=== PATIENT | male | born 1950 | race Caucasian/White ===

== ENCOUNTER → 2021-07-18 11:40 | Outpatient (CLI) | payer BC, SELFPAY ==
--- NOTE | ~2021-07-18 | XR_ITS ---
EXAMINATION: XR knee RT 3V DATE: 07/18/2021 12:25 INDICATION: Right knee pain. TECHNIQUE: 3 views of right knee were obtained. COMPARISON: None. FINDINGS: Bone alignment is normal. No fracture. There is an osteochondroma at the posterior medial a spect of proximal fibula. There is mild tricompartmental osteoarthritis characterized by tiny margina l osteophytes. No joint space narrowing. There is a small knee joint effusion. IMPRESSION: 1. Mild right knee osteoarthritis. 2. Small right knee joint effusion. Reviewed, dictated and finalized at location A. ROOM TECHNICIAN
--- NOTE | ~2021-07-18 | US_ITS ---
EXAMINATION: US venous doppler LE DATE: 07/18/2021 12:02 INDICATION: Right lower limb pain and swelling. TECHNIQUE: Grayscale ultrasound images without and with compression and Doppler ultrasound images of the right lower extremity veins were obtained. COMPARISON: None. FINDINGS: The visualized portions of right common femoral vein, profunda (deep) femoral vein, femoral vein, pop liteal vein, peroneal trunk, posterior tibial veins, peroneal veins, gastrocnemius vein, soleal vein and greater saphenous vein outflow are patent. IMPRESSION: 1. No deep venous thrombosis in the right lower limb. Reviewed, dictated and finalized at location B. ATOR SENIOR CLINICAL
== END ==
PROVIDERS: PCP Nurse Practitioner Adult Health; Visit Provider Family Medicine
DX: M25.561 Pain in right knee (principal); M17.11 Unilateral primary osteoarthritis, right knee; M25.461 Effusion, right knee
CPT/HCPCS: 73562; 93971

== ENCOUNTER → 2023-02-16 10:41 | Outpatient (CLI) | payer BC, SELFPAY ==
--- NOTE | ~2023-02-16 | XR_ITS ---
Right Shoulder Technique: AP and axillary views were obtained. Clinical History: Pain Findings: No fracture or dislocation is seen. Osseous alignment is anatomic. There is moderate degene rative change of glenohumeral joint, joint space narrowing and inferomedial humeral head ossify prese nt.. Soft tissues are unremarkable. Impression: Moderate glenohumeral joint osteoarthritis. Reviewed, dictated and finalized at location M. Impression: Moderate glenohumeral joint osteoarthritis.
--- NOTE | ~2023-02-16 | XR_ITS ---
Left Shoulder Technique: AP and axillary views were obtained. Clinical History: Pain Findings: No fracture or dislocation is seen. Osseous alignment is anatomic. There is moderate osteoa rthritis of the glenohumeral joint. Soft tissues are unremarkable. Impression: Moderate glenohumeral joint osteoarthritis. Reviewed, dictated and finalized at [facility]. Impression: Moderate glenohumeral joint osteoarthritis.
== END ==
PROVIDERS: PCP Orthopaedic Surgery; Visit Provider Orthopaedic Surgery
DX: M19.011 Primary osteoarthritis, right shoulder (principal); M19.012 Primary osteoarthritis, left shoulder
CPT/HCPCS: 73030

== ENCOUNTER 2023-06-18 08:28 | Outpatient (CLI) | payer BC, SELFPAY ==
--- NOTE | 2023-06-18 08:30 | ECG_ITS ---
Measurements Intervals [place] Rate: 96 P: OR: 0 QRS: 22 QRSD: 90 T: -18 QT: 346 QTc: 437 Interpretive Statements ATRIAL FIBRILLATION ABNORMAL RHYTHM ECG NO PREVIOUS ECG AVAILABLE FOR COMPARISON Electronically Signed On 06-18-2023 10:45:25 FOURTH MATE by Robbin Amador M.D.
== END 2023-06-18 08:29 | disposition home or self-care (01) ==
LOC: ANHSURGERY 08:32
PROVIDERS: PCP Family Medicine; Visit Provider Surgery
DX: K40.90 Unilateral inguinal hernia, without obstruction or gangrene, not specified as recurrent (principal); E78.5 Hyperlipidemia, unspecified; Z01.818 Encounter for other preprocedural examination
CPT/HCPCS: 36415; 86850; 86900; 86901; 93005

== ENCOUNTER 2023-06-23 01:33 | Day surgery (SDC) | payer BC, SELFPAY ==
--- NOTE | 2023-06-17 14:32 | PC.NURSE ---
Report to the Outpatient Waiting Room, entrance under the green pavilion located off [facility], at time __0600 on date _06/23/23 . Planned Procedure Time: _0730 . Time changes happen often and if your time is changed the preop area will call you the afternoon before. - You and your visitor will be asked to self-screen and do not enter if you have any COVID symptoms. - A mask is optional within the hospital at this time. Patients may have clear liquids (water, carbonated beverages, clear teas, apple juice) until 3 hours prior to surgery( 4:30 AM ) with a maximum of 20 ounces. - No food from midnight until time of surgery - Take the following medications with a SIP of water the morning of surgery: ___METOPROLOL DO NOT STOP ANY OF YOUR OTHER PRESCRIPTION MEDICATIONS PRIOR TO SURGERY ?EXCEPT THE FOLLOWING Medications to discontinue per physician ___XARELTO HOLD 3 DAYS PRE OP PER DR GIBBS 06/19/23 ALL VITAMINS 3 DAYS PRE OP . Please no make-up, nail sudanese, hairspray, perfume, deodorant, or body powder the day of surgery. No jewelry (including any body piercings) or valuables the day of surgery, leave them at home. Please take a shower or bath the night before, or the morning of, surgery with an antibacterial soap. Wear comfortable, loose fitting clothing. Children are encouraged to wear pajamas. - Jewelry must be removed prior to entering the operating room. Rings and piercings that are not removed may be cut off. - The hospital will not accept responsibility for valuables. - Please leave all valuables, including medications, at home the day of surgery. If you are going home after surgery, a licensed flatbed truck driver must drive you home. - NO public transportation without another adult if you receive anesthesia. - We recommend that an adult stay with you for 24 hours following discharge. - We also recommend that you do not drive, make important decision, drink alcoholic beverages, or take any drugs that were not prescribed by your health care provider for at least 24 hours after your discharge time. For Pediatric surgeries, we recommend two adults accompany the child home. Follow any additional instructions given to you from your surgeon. If you or anyone in your household have experienced Covid symptoms in the past week, please notify your surgeon or the nurse liaison at the phone number below for possible testing. Telephone instructions given to ___PATIENT and asked if any additional questions and then verbalized understanding. Patient advised to call surgeon office or pre surgery nurse liaison [phone] if any additional questions.
[2023-06-17 14:53] VITALS: BMI 28.3
[2023-06-23] VITALS (9 sets, daily range): BP systolic 102–136; BP diastolic 60–80; PULSE 68–98; RESP 16–22; TEMP 36.6–37.1; O2SAT 95–100
--- NOTE | 2023-06-23 06:47 | P.PNAN_ITS ---
Anes - Initial Pre Proc Eval Procedure: Operation Date: 06/23/23 07:30 Proposed Procedures p Laparoscopic Left Inguinal Hernia Repair with Mesh, Davinci Assisted - Abimael Badillo DO Date/Time: 06/23/23 06:47 Surgeon: Abimael Badillo DO Pre Op Diagnosis: left inguinal hernia Patient Data Age: 73 Gender: M Height: 1.65 m Weight: 77.2 kg Allergies Allergy/AdvReac Type Severity Reaction Status Date / Time erythromycin base Allergy Mild Nausea Verified 06/23/23 06:40 Macrolide Antibiotics Allergy Unknown NAUSEA Verified 06/21/23 13:51 Home Medications Medication Instructions Recorded Confirmed Type atorvastatin 20 mg tablet 20 mg PO DAILY 08/11/21 06/23/23 History metoprolol tartrate 50 mg tablet 50 mg PO BID 08/11/21 06/23/23 History rivaroxaban 20 mg tablet (Xarelto) 20 mg PO DAILY 08/11/21 06/23/23 History multivit,Ca,min-iron 8 mg-folic 1 tablet PO DAILY 06/17/23 06/23/23 History acid 200 mcg-lycopene 600 mcg tablet (Centrum Men) omeprazole magnesium 20 mg 20 mg PO EVERY OTHER DAY 06/17/23 06/23/23 History tablet,delayed release (Prilosec OTC) Patient hx anesthesia problems: none Family hx anesthesia problems: none Results Review: All pre-operative results and documents have been reviewed as part of the pre- operative evaluation. PENDING SALE TO [facility] Past Medical History Medical History A-fib Hip bursitis History of stress test Hyperlipidemia Nephritis Shoulder tendonitis Surgical History Surgical History History of cardioversion x4 Hx of tonsillectomy Family History Family History Father Pancreatic cancer Mother Lung cancer Social History Social History Smoking packs per day: 1 Smoking cigarettes per day: 20.0 Years smoked: 50 Smoking pack-years: 50.00 Smoking status: Former smoker Tobacco type: cigarettes Smoking end date: 07/12/10 Alcohol intake: never Lack of Transportation: No Lack of Food: Never True Current Housing: I Have Housing Concerned About Future Housing: No Difficulty Paying Gas/Electric Bills: No Difficulty Paying for Meds: No Currently Unemployed: No Education: Master's Degree or Higher Difficulty w/ Childcare or Family Care: No Living arrangements: with family Spiritual care concerns: No Anes - Eval Final PreProcedure Day of Procedure 06/23/23 06:47 Patient weight: overweight Heart: irregular rhythm Lungs: clear to auscultation Airway: Mallampati scale class II Neurological: alert and oriented Last oral intake: >/= 8 hours ASA classification: III Emergent: no Anesthetic plan: proceed Anesthesia type and monitoring: general ETT and standard monitoring Results Review: All pre-operative results and documents have been reviewed as part of the pre- operative evaluation. Informed Consent: The patient's anesthetic plan and its attendant risks and benefits were discussed with the patient/family/POA. Questions were solicited and answers provided to the satisfaction of the patient/family/POA.
[2023-06-23] MEDS: ACETAMINOPHEN 500 MG TABLET 1000 MG PO (06:54)
--- NOTE | 2023-06-23 07:09 | PM.IMHP ---
H&P: HPI History of Present Illness Date/Time: 06/23/23 07:09 Chief Complaint: LIH Narrative: 73 yo man presents for LIH repair. He reports no changes since last seen in office. Review of Systems Review of Systems: All systems reviewed & are unremarkable except as noted in HPI and below Constitutional: Constitutional: Denies chills, Denies fever(s), Denies headache(s) and Denies weight loss Eyes: Eyes: Denies change in vision ENT: Denies dizziness, Denies headache(s), Denies neck mass and Denies throat swelling Cardiovascular: Cardiovascular: Denies chest pain, Denies lightheadedness and Denies dyspnea Respiratory: Respiratory: Denies cough, Denies dyspnea and Denies wheezing Gastrointestinal: Gastrointestinal: Denies abdominal pain, Denies change in bowel habits, Denies nausea and Denies vomiting Genitourinary: Genitourinary: Denies hematuria and Denies dysuria Musculoskeletal: Musculoskeletal: Reports as per HPI Integumentary/Breasts: Skin/Breast: Reports as per HPI Neurologic: Denies dizziness and Denies headache(s) Allergic/Immunologic: Allergic/Immunologic: Denies throat swelling and Denies wheezing [facility] Past Medical History Medical History A-fib Hip bursitis History of stress test Hyperlipidemia Nephritis Shoulder tendonitis Surgical History Surgical History History of cardioversion x4 Hx of tonsillectomy Family History Family History Father Pancreatic cancer Mother Lung cancer Social History Social History Smoking packs per day: 1 Smoking cigarettes per day: 20.0 Years smoked: 50 Smoking pack-years: 50.00 Smoking status: Former smoker Tobacco type: cigarettes Smoking end date: 07/12/10 Alcohol intake: never Lack of Transportation: No Lack of Food: Never True Current Housing: I Have Housing Concerned About Future Housing: No Difficulty Paying Gas/Electric Bills: No Difficulty Paying for Meds: No Currently Unemployed: No Education: Master's Degree or Higher Difficulty w/ Childcare or Family Care: No Living arrangements: with family Spiritual care concerns: No Meds Home Medications and Allergies Home Medications Medication Instructions Recorded Confirmed Type atorvastatin 20 mg tablet 20 mg PO DAILY 08/11/21 06/23/23 History metoprolol tartrate 50 mg tablet 50 mg PO BID 08/11/21 06/23/23 History rivaroxaban 20 mg tablet (Xarelto) 20 mg PO DAILY 08/11/21 06/23/23 History multivit,Ca,min-iron 8 mg-folic 1 tablet PO DAILY 06/17/23 06/23/23 History acid 200 mcg-lycopene 600 mcg tablet (Centrum Men) omeprazole magnesium 20 mg 20 mg PO EVERY OTHER DAY 06/17/23 06/23/23 History tablet,delayed release (Prilosec OTC) Allergies Allergy/AdvReac Type Severity Reaction Status Date / Time erythromycin base Allergy Mild Nausea Verified 06/23/23 06:40 Macrolide Antibiotics Allergy Unknown NAUSEA Verified 06/21/23 13:51 Vital Signs Vital Signs - 24 hr 06/23/23 06:58 Temperature 37.1 C Pulse Rate 98 Respiratory Rate 16 Blood Pressure 119/70 Pulse Oximetry 98 Oxygen Delivery Room Air Exam Const: General: no acute distress and alert Orientation/consciousness: patient oriented x3 HENMT: Head: normocephalic and atraumatic Ears: hearing grossly normal bilaterally Face/Nose/Sinus: Normal nares present Mouth: Yes Normal oral and palatal mucosa present Eyes: Periorbital: periorbital findings normal Sclera: sclerae normal EOM: EOMs intact bilaterally Neck: Neck: normal visual inspection, no lymphadenopathy and trachea midline Chest: Chest palpation & inspection: normal inspection of the chest Resp: Effort & Inspection: normal respiratory effort Auscultation: clear to auscultation bilaterally Cardi
[2023-06-23] MEDS: LACTATED RINGERS 1,000 ML 30 ML IV CONT ×3 (07:10→10:17)
--- NOTE | 2023-06-23 07:10 | WPDHPUPDATE1 ---
History and Physical Update Update Date/Time: 06/23/23 07:10 History and Physical has been reviewed, including an updated exam of the patient. There are NO changes in the patient's condition. Risks, benefits, and alternatives have been discussed and questions answered. Patient agrees to proceed with procedure.
[2023-06-23] MEDS: KETOROLAC 15 MG/ML VIAL (*BKC) IV PUSH (07:12)
[2023-06-23] MEDS: ceFAZolin 2 GM/D5W 50 ML 2 GM/50 ML BAG IVPB (07:28)
[2023-06-23] MEDS: BUPIVACAINE/EPINEPHRINE 0.5% 50 ML VIAL 30 ML INFILTRATE (07:52)
--- NOTE | 2023-06-23 08:16 | W.PM.PROC2 ---
Procedure Note - Detailed Date of Procedure 06/23/23 Pre-op Diagnosis left inguinal hernia Post-op Diagnosis Same (Direct LIH) Procedure Performed Laparoscopic left inguinal hernia repair with mesh, da Isauro assisted Surgeon Abimael Badillo DO Anesthesia General and Local (0.5% bupivacaine with epinephrine) Indications This is a 73-year-old man who presented with a left inguinal hernia. He initially began noticing a bulge in the left groin region about 3 years ago. Over the past 2 months it has started becoming painful especially with standing for long periods of time. Discussions were made with the patient about treatment options and decision was made to proceed with robotic assisted laparoscopic left inguinal hernia repair with mesh. Findings Laparoscopic left inguinal hernia repair was performed. The patient was found to have a moderate-sized direct left inguinal hernia. There was no evidence of right inguinal hernia. A robotic transabdominal preperitoneal approach was utilized for repair. Once a wide enough preperitoneal pocket was created, I then placed a large left Bard 3DMax mid mesh overlying the entire left myopectineal orifice. No specimens were obtained for pathology. Description of Procedure Procedure as well as risks, benefits, and alternatives were discussed with the patient. Written consent was obtained and placed in chart prior to procedure. Patient was brought back to surgical suite. He was placed supine on operating table. Time-out was done to confirm patient and procedure. He was then intubated by Anesthesia Department. His abdomen was prepped and draped in sterile fashion using chlorhexidine prep. 0.5% bupivacaine with epinephrine was infiltrated at each location for incision. An 8 mm incision was made in the left lateral abdomen, and a 5 mm Optiview trocar was advanced through the abdominal layers under direct visualization. Once inside the abdominal cavity, carbon dioxide insufflation was used to create a pneumoperitoneum. A camera was inserted and the abdominal cavity was inspected. The patient was placed in slight Trendelenburg position. An 8 millimeter incision was made on the right lateral abdomen and an 8 millimeter trocar was inserted under direct visualization. Another 8 millimeter incision was made just superior to the umbilicus and an 8 millimeter trocar was inserted under direct visualization. The 5 mm port was then removed and this was replaced with another 8 mm robotic port. The robotic arms were brought up to the patient's bedside and secured to the ports. The camera and instruments were inserted. I then moved over to the robotic console and took control of the camera and instruments. After careful inspection of the abdominal cavity, I began scoring the peritoneum along the left lower quadrant using scissors with electrocautery. The preperitoneal plane was entered and this was carefully dissected caudally along the inferior epigastric vessels. Careful dissection with scissors with electrocautery and blunt dissection was used to continue this dissection. I dissected far enough laterally to allow for mesh placement, and also dissected medially to identify the pubic arch and Kyrie's ligament. The hernia sac was identified and carefully dissected posteriorly. The cord contents were also identified and the peritoneum was carefully dissected far enough posteriorly to allow for mesh placement. Once an adequate pocket was created, I then placed the mesh within the preperitoneal pocket and carefully unfolded it. The mesh was centered on the hernia defect with adequate overlap circumferentially. The inferior edge of the mesh was inspected to ensure that it was far enough away from the peritoneal edge. The mesh appeared in proper position overlying the entire myopectineal orifice. The mesh was secured using 3-0 Vicryl simple interrupted sutures in Kyrie's ligament, the superior medial edge, and superior lateral edge
[2023-06-23] MEDS: oxyCODONE HCL (*CRX) 5 MG TAB IR PO (10:17)
== END 2023-06-23 11:05 | disposition home or self-care (01) ==
PROVIDERS: PCP Family Medicine; Visit Provider Surgery
PROC: 8E0Y4CZ Robotic Assisted Procedure of Lower Extremity, Percutaneous Endoscopic Approach (ICD-10-PCS; CPT 49650; principal; 2023-06-23 07:30)
DX: K40.90 Unilateral inguinal hernia, without obstruction or gangrene, not specified as recurrent (principal); I48.91 Unspecified atrial fibrillation; E78.5 Hyperlipidemia, unspecified; Z79.01 Long term (current) use of anticoagulants; Z87.891 Personal history of nicotine dependence
CPT/HCPCS: 49650; S2900; A9270; C1781; J0330; J0690; J1885; J2405; J2704; J7120

== ENCOUNTER 2023-08-03 12:56 | Outpatient (CLI) | payer BC, SELFPAY ==
--- NOTE | ~2023-08-03 | CT_ITS ---
EXAMINATION: CT shoulder RT wo con DATE: 08/03/2023 13:25 INDICATION: Right glenohumeral joint osteoarthritis. Preop planning. TECHNIQUE: Computed tomography (CT) of the right shoulder was performed without intravenous contrast. Automated exposure control and iterative reconstruction technique were employed. The dose-length pro duct was 556.93 mGy-cm. COMPARISON: Right shoulder radiographs 02/16/2023 FINDINGS: There is mild emphysema. There is mild scarring at right lung apex. Bone alignment is elías l. No fracture. There is severe osteoarthritis of acromioclavicular joint. There is severe osteoarthr itis of glenohumeral joint including bone volume loss of glenoid. There is no asymmetric fatty atroph y of the rotator cuff muscle bellies. IMPRESSION: 1. Severe polyarticular osteoarthritis. Reviewed, dictated and finalized at location E. FING ANALYST
== END 2023-08-03 12:57 | disposition home or self-care (01) ==
PROVIDERS: PCP Family Medicine; Visit Provider Orthopaedic Surgery
DX: M19.011 Primary osteoarthritis, right shoulder (principal)
CPT/HCPCS: 73200

== ENCOUNTER 2023-09-24 13:52 | Outpatient (CLI) | payer BC, SELFPAY ==
[2023-09-24 15:31] LABS: Basophils Absolute Auto 0.1 K/mm3 (0.0-0.1); Basophils Percent Auto 0.6 % (0.2-1.2); Eosinophils Absolute Auto 0.2 K/mm3 (0-0.3); Eosinophils Percent Auto 3.1 % (0-4.4); Hemoglobin 14.1 g/dL (14.0-18.0); Immature Granulocyte Absolute 0.02 K/mm3 (0.00-0.031); Immature Granulocyte Percent A 0.3 % (0-0.5); Lymphocytes Absolute Auto 2.04 K/mm3 (0.9-3.2); Lymphocytes Percent Auto 26.2 % (18.3-44.2); Mean Corpuscular Hemoglobin 29.6 pg (26-34); Mean Corpuscular Volume 92.4 fl (80-100); Mean Platelet Volume 11.8 fl (7.4-10.4); Monocytes Absolute Auto 0.6 K/mm3 (0.1-0.6); Monocytes Percent Auto 7.7 % (2.6-8.5); Neutrophils Absolute Auto 4.9 K/mm3 (1.3-6.7); Neutrophils Percent Auto 62.1 % (45.5-73.1); Platelet Count Result 211 k/mm3 (150-375); Red Blood Count 4.76 M/mm3 (4.6-6.20); Red Cell Distribution Width 12.4 % (11.5-14.5); White Blood Count 7.8 K/mm3 (4.5-10.0)
[2023-09-24 17:01] LABS: MRSA (PCR) NOT DETECTED (NOT DETECTE)
== END 2023-09-24 13:53 | disposition home or self-care (01) ==
LOC: ANHSURGERY 13:56
PROVIDERS: PCP Family Medicine; Visit Provider Orthopaedic Surgery
DX: Z01.818 Encounter for other preprocedural examination (principal); M19.011 Primary osteoarthritis, right shoulder
CPT/HCPCS: 36415; 85025; 87641

== ENCOUNTER 2023-10-21 00:34 | Day surgery (SDC) | payer BC, SELFPAY ==
--- NOTE | 2023-09-24 14:00 | PC.NURSE ---
Report to the Outpatient Waiting Room, entrance under the green pavilion located off [facility], at time __6:00AM on date __10/21/23 . Planned Procedure Time: ___7:30AM . Time changes happen often and if your time is changed the preop area will call you the afternoon before. - You and your visitor will be asked to self-screen and do not enter if you have any COVID symptoms. - A mask is optional within the hospital at this time. Patients may have clear liquids (water, carbonated beverages, clear teas, apple juice) until 3 hours prior to surgery with a maximum of 20 ounces. - No food from midnight until time of surgery. Take the following medications with a SIP of water the morning of surgery: ___METOPROLOL DO NOT STOP ANY OF YOUR OTHER PRESCRIPTION MEDICATIONS PRIOR TO SURGERY ?EXCEPT THE FOLLOWING Medications to discontinue per physician ____HOLD XERALTO 3 DAYS PRE-OP PER DR SHERWOOD- LAST DOSE 10/11/23. HOLD ALL VITAMINS/SUPPLEMENTS 3 DAYS PRE-OP PER ANESTHESIA- LAST DOSE 10/11/23 Please no make-up, nail greek, hairspray, perfume, deodorant, or body powder the day of surgery. No jewelry (including any body piercings) or valuables the day of surgery, leave them at home. Please take a shower or bath the night before, or the morning of, surgery with an antibacterial soap. Wear comfortable, loose fitting clothing. - Jewelry must be removed prior to entering the operating room. Rings and piercings that are not removed may be cut off. - The hospital will not accept responsibility for valuables. - Please leave all valuables, including medications, at home the day of surgery. If you are going home after surgery, a licensed sanitation truck driver must drive you home. - NO public transportation without another adult if you receive anesthesia. - We recommend that an adult stay with you for 24 hours following discharge. - We also recommend that you do not drive, make important decision, drink alcoholic beverages, or take any drugs that were not prescribed by your health care provider for at least 24 hours after your discharge time. Follow any additional instructions given to you from your surgeon. If you or anyone in your household have experienced Covid symptoms in the past week, please notify your surgeon or the nurse liaison at the phone number below for possible testing. Telephone instructions given to ____PATIENT & SPOUSE and asked if any additional questions and then verbalized understanding. Patient advised to call surgeon office or pre surgery nurse liaison [phone] if any additional questions.
[2023-09-24 14:09] VITALS: BP 108/67; PULSE 90; RESP 16; TEMP 37.1; O2SAT 97; BMI 30.4
[2023-10-21] VITALS (21 sets, daily range): BP systolic 110–132; BP diastolic 67–90; PULSE 59–100; RESP 14–20; TEMP 35.7–36.6; O2SAT 92–100
--- NOTE | ~2023-10-21 | XR_ITS ---
EXAMINATION: XR shoulder RT min 2V DATE: 10/22/2023 12:03 INDICATION: Status post right reverse total shoulder arthroplasty. TECHNIQUE: AP internally and externally rotated, AP oblique externally rotated and transscapular Y vi ews of the right shoulder were obtained. COMPARISON: None FINDINGS: Reverse right total shoulder arthroplasty which appears well seated in near-anatomic alignment. No fr acture. Moderate right acromioclavicular osteoarthritis. Expected lucent postoperative soft tissue ga s about the arthroplasty. Mild right basilar opacities and favor atelectasis over pneumonia. IMPRESSION: Expected appearance post reverse right total shoulder arthroplasty negative for postoperative purpose s. See procedure note for further detail. Reviewed, dictated and finalized at location B. IMPRESSION: Expected appearance post reverse right total shoulder arthroplasty negative for postoperative purposes. See procedure note for further detail.
[2023-10-21] MEDS: ACETAMINOPHEN 500 MG TABLET 1000 MG PO ×2 (06:45→17:27)
[2023-10-21] MEDS: LACTATED RINGERS 1,000 ML 30 ML IV CONT (06:45)
--- NOTE | 2023-10-21 06:55 | WPDANESEPPF ---
Anes - Initial Pre Proc Eval Procedure: Operation Date: 10/21/23 07:30 Proposed Procedures p Right Anatomic Total Shoulder Arthroplasty - Teofilo Woo MD Date/Time: 10/21/23 06:55 Surgeon: Teofilo Woo MD Pre Op Diagnosis: Prim O A Rt Shoulder Patient Data Age: 73 Gender: M Height: 1.64 m Weight: 81.1 kg Last Vital Signs Temp 97.4 F L 10/21/23 06:10 Pulse 86 10/21/23 06:10 Resp 16 10/21/23 06:10 BP 120/81 10/21/23 06:10 Pulse Ox 98 10/21/23 06:10 O2 Del Method Room Air 10/21/23 06:10 Allergies Allergy/AdvReac Type Severity Reaction Status Date / Time erythromycin base AdvReac Mild Nausea Verified 09/24/23 14:03 Macrolide Antibiotics AdvReac Unknown NAUSEA Verified 09/24/23 14:03 Home Medications Medication Instructions Recorded Confirmed Type atorvastatin 20 mg tablet 20 mg PO DAILY 08/11/21 10/21/23 History metoprolol tartrate 50 mg tablet 50 mg PO BID 08/11/21 10/21/23 History rivaroxaban 20 mg tablet (Xarelto) 20 mg PO DAILY 08/11/21 10/21/23 History multivit,Ca,min-iron 8 mg-folic 1 tablet PO DAILY 06/17/23 10/21/23 History acid 200 mcg-lycopene 600 mcg tablet (Centrum Men) omeprazole magnesium 20 mg 20 mg PO DAILY 06/17/23 10/21/23 History tablet,delayed release (Prilosec OTC) acetaminophen 500 mg capsule 500 mg PO Q6H 09/24/23 10/21/23 History ascorbate calcium (vitamin C) 500 500 mg PO EVERY OTHER DAY 09/24/23 10/21/23 History mg capsule diphenhydramine 25 1 tablet PO HS PRN Insomnia 09/24/23 10/21/23 History mg-acetaminophen 500 mg tablet (Tylenol PM Extra Strength) Patient hx anesthesia problems: none Family hx anesthesia problems: none Results Review: All pre-operative results and documents have been reviewed as part of the pre-operative evaluation. [facility] Past Medical History Medical History A-fib Hip bursitis History of stress test Hyperlipidemia Nephritis Shoulder tendonitis Surgical History Surgical History History of cardioversion x4 History of left inguinal hernia repair Laparoscopic left inguinal hernia repair with mesh, da Isauro assisted 08/24/22 [facility] Hx of tonsillectomy Family History Family History Father Pancreatic cancer Mother Lung cancer Social History Social History Smoking packs per day: 1.5 Smoking cigarettes per day: 30.0 Years smoked: 50 Smoking pack-years: 75.00 Smoking status: Former smoker Tobacco type: cigarettes Smoking end date: 07/12/10 Additional smoking assessment comments: 01/09/2010 Alcohol intake: never Lack of Transportation: No Lack of Food: Never True Current Housing: I Have Housing Concerned About Future Housing: No Difficulty Paying Gas/Electric Bills: No Difficulty Paying for Meds: No Currently Unemployed: No Education: Master's Degree or Higher Difficulty w/ Childcare or Family Care: No Living arrangements: with family Additional living arrangements comments: Spiritual care concerns: No Anes - Eval Final PreProcedure Day of Procedure 10/21/23 06:55 Patient weight: overweight Heart: irregular rhythm Lungs: clear to auscultation Neurological: alert and oriented Last oral intake: >/= 8 hours ASA classification: III Emergent: no Anesthetic plan: proceed Anesthesia type and monitoring: general and standard monitoring Other findings: Pt on xarelto, held for 5 days. Results Review: All pre-operative results and documents have been reviewed as part of the pre-operative evaluation. Informed Consent: The patient's anesthetic plan and its attendant risks and benefits were discussed with the patient/family/POA. Questions were solicited and answers provided to the satisfaction of the eneida
[2023-10-21] MEDS: TRANEXAMIC ACID 1,000MG/ISO100 1,000 MG/100 ML BAG 200 MG IVPB (07:08)
--- NOTE | 2023-10-21 07:25 | WPDHPUPDATE1 ---
History and Physical Update Update Date/Time: 10/21/23 07:25 History and Physical has been reviewed, including an updated exam of the patient. There are NO changes in the patient's condition. Risks, benefits, and alternatives have been discussed and questions answered. Patient agrees to proceed with procedure.
[2023-10-21] MEDS: ceFAZolin 2 GM/D5W 50 ML 2 GM/50 ML BAG IVPB ×2 (07:32→16:47)
--- NOTE | 2023-10-21 07:46 | WPDANESPNB ---
Anes - Peripheral Nerve Block Date/Time: 10/21/23 07:46 I have discussed with the patient/family/POA the placement of a peripheral nerve block for post-operative pain management, including associated risks, benefits, complications, and side effects. Alternative methods of post-operative analgesia were detailed. Questions were solicited and answers provided to the satisfaction of the patient/family/POA. Time-Out: A pre-procedural Time-Out was completed immediately before starting the procedure and confirmed: Patient Identification, Site, Procedure, Patient Position and the Availability of Requisite Equipment. Clinical Indications: Acute post-operative pain management requested by the operative surgeon. Nerve Block Insertion Note Anes-nerve block: interscalene right Patient position: supine Skin prep: chlorhexidine Needle: 22 gauge, stimulating, insulated echogenic needle. Needle length: 80 mm Technique: ultrasound Injectate: other (Bupiv 0.5%, 15 mls. ) Observations: tolerated well Complications: none Procedure start time:: Procedure end time::
[2023-10-21] MEDS: SODIUM CHLORIDE 0.9% IV 37.7 ML, MORPHINE SULFATE INJ (*CRX) 2 MG, ROPivacaine HCL 1% 2... INFILTRATE (08:10)
[2023-10-21] MEDS: VANCOMYCIN HCL 1,000 MG VIAL 1000 MG TOPICAL (08:13)
--- NOTE | 2023-10-21 09:56 | P.OP_ITS ---
Procedure Note - Detailed Date of Procedure 10/21/23 Pre-op Diagnosis Primary osteoarthritis right shoulder. Post-op Diagnosis Same Procedure Performed Anatomic total shoulder arthroplasty, right. Surgeon Teofilo Woo MD Risk Compliance Analyst Caridad Porras PA-C Anesthesia General and Regional Description of Procedure Preoperative antibiotics were given. An interscalene block placed in the holding area. The patient was brought to the operating room and a general anesthetic was administered. He was carefully placed in the chair position. Head and neck, and bony prominences were carefully padded and positioned. The shoulder was prepped and draped in the usual sterile fashion. A longitudinal incision was created over the deltopectoral interval. The cephalic vein was identified and protected. It was retracted medially. The biceps was released and later tenodesed to the pectoralis tendon. A lesser tuberosity osteotomy was created with osteotomes. It was tagged for later repair. The inferior capsule was exposed and the humeral head was delivered into the wound. An anatomic head cut was taken utilizing the x-ray internal alignment jig. The cut protector was placed and attention was turned to the glenoid. For both humeral ligament was released. The anterior capsule partially excised superiorly and released inferiorly. The glenoid was excised along with the biceps. The capsule was released inferiorly including the triceps attachment. Posterior capsular rel ease was performed as necessary. Anatomic landmarks on the glenoid were identified and the drill guide was placed slightly superior to match the anticipated humeral articulating area. The guide pin was placed followed by the one-step reaming to approximately 2-3 mm depth. The superior and inferior drill was used for the pegs. The bone was irrigated and prepared. The real component was cemented into position. Excess cement was carefully removed. Attention was turned back to the humerus. The opening Reamer was placed followed by the 0 broach. The lesser tuberosity osteotomy was rolled 3 times and a Kent suture Passer was used to pass a 2. Ethibond suture shuttle. The real implant was inserted with excellent Press-Fit. The 5. Ethibond modified Toni-Warren sutures from the lesser tuberosity osteotomy were shuttled laterally. The osteotomy was read return to its anatomic position and secured. Supplemental #2 Vicryl were used and 1 suture was placed in the rotator interval. The wound was irrigated. 1 g of vancomycin power was introduced into the wound. The deltopectoral interval was reapproximated with 2-0 Vicryl suture and the remaining skin 2-0 and 3-0 Stratafix suture. Steri-Strips were placed on the skin with a Mepilex bandage. Sling was applied and the patient extubated. An additional pain relieving cocktail was placed in the periarticular tissues during the procedure. Physician school health assistant, Caridad Hatch PA-C, required for surgery; including patient positioning, draping, arthroscopic camera operation, maintaining instrument position, wound closure, and dressing and sling placement. Implants Shoulder innovations [stemless humeral implant size 1. 48 x 18 mm humeral head. 24 mm diameter circular in line peg inset glenoid component. One batch of quick set antibiotic cement. Estimated Blood Loss 200 Drains No Packing No Pathology None sent Complications No immediate complications Condition Stable Disposition PACU [facility] Billing Surgery - Charge Forward: Surgery Billing
--- NOTE | 2023-10-21 14:35 | ADMGEN ---
This patient, Gen Downey, was admitted to 3 [facility] Surg Room 300-01. Patient/family oriented to hospital policies and general routines including ID bracelet, bed and alarms, visiting hours, pain management, procedures, bathroom and other care routines, personal items, smoking policy, room service/diet, and visiting hours. Information on how to activate the Rapid Response Team has been discussed. Patient/Family are encouraged to report perceived risks to care and to ask questions if they do not understand what they are told or what they should do.
[2023-10-21] MEDS: SODIUM CHLORIDE 0.9% IV 1,000 ML 125 ML IV CONT (15:32)
[2023-10-21] MEDS: ASPIRIN 81 MG ENTERIC TABLET PO (17:25)
[2023-10-21] MEDS: SENNA/DOCUSATE SODIUM TABLET 2 TAB PO (17:26)
[2023-10-21] MEDS: traMADol HCL (*CRX) 50 MG TABLET PO (17:36)
[2023-10-21] MEDS: oxyCODONE HCL (*CRX) 5 MG TAB IR PO (20:56)
[2023-10-21] MEDS: CYCLOBENZAPRINE HCL 10 MG TABLET PO (20:56)
[2023-10-21] MEDS: METOPROLOL TARTRATE 50 MG TAB PO (20:57)
[2023-10-22] MEDS: ACETAMINOPHEN 500 MG TABLET 1000 MG PO ×2 (00:07→05:40)
[2023-10-22] MEDS: ceFAZolin 2 GM/D5W 50 ML 2 GM/50 ML BAG IVPB ×2 (00:08→09:41)
[2023-10-22 01:15] VITALS: BP 92/71; PULSE 83; RESP 16; TEMP 36.3; O2SAT 91
[2023-10-22 04:45] VITALS: BP 99/60; PULSE 73; RESP 18; TEMP 36.2; O2SAT 94
[2023-10-22 06:36] LABS: Basophils Percent Auto 0.2 % (0.2-1.2); Hematocrit 39.6 % (42.0-52.0); Hemoglobin 12.7 g/dL (14.0-18.0); Immature Granulocyte Absolute 0.11 K/mm3 (0.00-0.031); Immature Granulocyte Percent A 0.7 % (0-0.5); Lymphocytes Absolute Auto 1.15 K/mm3 (0.9-3.2); Mean Corpuscular HGB Conc 32.1 g/dl (32-36); Mean Corpuscular Hemoglobin 29.5 pg (26-34); Mean Corpuscular Volume 92.1 fl (80-100); Mean Platelet Volume 11.9 fl (7.4-10.4); Monocytes Absolute Auto 1.2 K/mm3 (0.1-0.6); Monocytes Percent Auto 7.1 % (2.6-8.5); Platelet Count Result 175 k/mm3 (150-375); Red Cell Distribution Width 12.7 % (11.5-14.5); White Blood Count 16.5 K/mm3 (4.5-10.0)
[2023-10-22 06:49] LABS: Anion Gap 6 mmol/L (4-12); Blood Urea Nitrogen 17 mg/dL (9-20); Calcium 8.4 mg/dL (8.4-10.2); Carbon Dioxide 29 mmol/L (22-30); Chloride 102 mmol/L (98-107); Estimated CRCL calculation 70 ml/min; Estimated Glomerular Filt Rate > 60; Glucose 111 mg/dL (65-110); Potassium 4.2 mmol/L (3.4-5.0); Sodium 137 mmol/L (137-145)
--- NOTE | 2023-10-22 08:09 | WPDANESPN ---
Anes - Prog Note Post-Op Date/Time: 10/22/23 08:09 Vital Signs: Last Vital Signs Temp 36.2 C L 10/22/23 04:45 Pulse 73 10/22/23 04:45 Resp 18 10/22/23 04:45 BP 99/60 L 10/22/23 04:45 Pulse Ox 94 10/22/23 04:45 O2 Del Method Room Air 10/21/23 15:32 O2 Flow Rate 2 10/21/23 13:00 Pain Score (VAS): 1 I/O: Intake & Output 10/21/23 10/22/23 10/22/23 23:59 07:59 15:59 Intake Total 1210 150 Balance 1210 150 Laboratory Tests 10/22/23 05:34 10/22/23 05:34 10/22/23 05:34 WBC 16.5 H RBC 4.30 L Hgb 12.7 L Hct 39.6 L MCV 92.1 MCH 29.5 MCHC 32.1 RDW 12.7 Plt Count 175 MPV 11.9 H Immature Gran % (Auto) 0.7 H Neut % (Auto) 85.0 H Lymph % (Auto) 7.0 L [place] % (Auto) 7.1 Eos % (Auto) 0.0 Baso % (Auto) 0.2 Lymph # (Auto) 1.15 [place] # (Auto) 1.2 H Eos # (Auto) 0.0 Baso # (Auto) 0.0 Abs Immat Gran (auto) 0.11 H Absolute Neuts (auto) 14.0 H Absolute Nucleated RBC 0.000 Nucleated RBC % 0.0 Sodium 137 Potassium 4.2 Chloride 102 Carbon Dioxide 29 Anion Gap 6 BUN 17 Creatinine 0.80 Estim Creat Clear Calc 70 Estimated GFR > 60 Glucose 111 H Calcium 8.4 Patient Feedback: Patient satisfied with anesthetic care.
[2023-10-22 08:12] VITALS: BP 100/62; PULSE 78; RESP 18; TEMP 36.3; O2SAT 95
--- NOTE | 2023-10-22 08:25 | PM.DS ---
DS: Admitting Diagnosis Discharge Date 10/22/23 Admitting Diagnosis Glenohumeral joint arthritis DS: Discharge Diagnosis Discharge Diagnosis (1) Status post total replacement of right shoulder: Code(s): Z96.611 - Presence of right artificial shoulder joint Status: Acute Assessment and Plan: Postop day 1: Right Total Shoulder arthroplasty. Patient tolerated procedure well. No complications. Pain manageable with pain medication. No numbness or tingling. We had a lengthy discussion regarding postoperative wound care, limitations, expectations, and exercises. Patient shows good understanding. He has had initial physical therapy and is tolerating it well. DVT prophylaxis: 81 mg baby aspirin b.i.d. for 7 days then resume Xarelto. Pain medication: Percocet. Patient has followup appointment with Dr. Woo in 3 weeks. DS: Summary Hospital Course Hospital Course: Right anatomic total shoulder arthroplasty. No complications. Patient has had initial physical therapy and occupational therapy. Status at Discharge Functional status at discharge: independent ambulation Overall status at discharge: patient is progressing back to baseline Time Spent with Patient Time attestation: Total time spent providing and/or coordinating discharge services: Exam Narrative: Overweight 73 y/o male. Alert and oriented x3. No acute distress. Resting comfortably in bed. Wearing sling. Dressing dry and intact with no drainage. Mild swelling. Mild ecchymosis. No erythema. Range of motion limited due to pain. Good finger, wrist, elbow range of motion. Deltoid fires. Neurologic status intact. Light touch sensation intact. Normal capillary refill. No varicosities. Distal pulses palpable. DS: Data Data Completed and Pending Labs on day of discharge: Labs from last 24 hours 10/22/23 05:34 WBC 16.5 H RBC 4.30 L Hgb 12.7 L Hct 39.6 L MCV 92.1 MCH 29.5 MCHC 32.1 RDW 12.7 Plt Count 175 MPV 11.9 H Immature Gran % (Auto) 0.7 H Neut % (Auto) 85.0 H Lymph % (Auto) 7.0 L [place] % (Auto) 7.1 Eos % (Auto) 0.0 Baso % (Auto) 0.2 Lymph # (Auto) 1.15 [place] # (Auto) 1.2 H Eos # (Auto) 0.0 Baso # (Auto) 0.0 Abs Immat Gran (auto) 0.11 H Absolute Neuts (auto) 14.0 H Absolute Nucleated RBC 0.000 Nucleated RBC % 0.0 Sodium 137 Potassium 4.2 Chloride 102 Carbon Dioxide 29 Anion Gap 6 BUN 17 Creatinine 0.80 Estim Creat Clear Calc 70 Estimated GFR > 60 Glucose 111 H Calcium 8.4 Discharge Plan Discharge Patient Disposition: Home, Self-Care Discharge Instructions: See green instruction sheets Patient Instructions: Safe Use of Anticoagulants (DC) Stand Alone Forms: General Discharge Instructions Follow-up/Referrals: Caridad Porras PA [Physician Transformation Coach] - Discharge Medications: New aspirin 81 mg tablet,delayed release (DR/EC) 81 mg PO BID 7 Days Qty: 14 0RF oxycodone-acetaminophen 5-325 mg tablet 1 - 2 tablet PO Q4-6H MDD 6 PRN (Reason: pain) Qty: 30 0RF Continued atorvastatin 20 mg tablet 20 mg PO DAILY metoprolol tartrate 50 mg tablet 50 mg PO BID omeprazole magnesium [Prilosec OTC] 20 mg Tablet,Delayed Release (Dr/Ec) 20 mg PO DAILY Centrum Men 8 mg iron- 200 mcg-600 mcg Tablet 1 tablet PO DAILY diphenhydramine-acetaminophen [Tylenol PM Extra Strength] 25-500 mg Tablet 1 tablet PO HS PRN (Reason: Insomnia) acetaminophen 500 mg Capsule 500 mg PO Q6H ascorbate calcium (vitamin C) 500 mg Capsule 500 mg PO EVERY OTHER DAY Held Xarelto 20 mg tablet 20 mg PO DAILY Hold Instructions: Resume on 10/28/23. Hold for 1 week. Will bridge with ASA 81 mg. Rx Instructions: must administer with evening meal
[2023-10-22] MEDS: traMADol HCL (*CRX) 50 MG TABLET PO (08:42)
[2023-10-22] MEDS: PANTOPRAZOLE 40 MG TABLET PO (08:42)
[2023-10-22] MEDS: polyethylene glycoL 3350 17 GM POWD.PACK PO (08:42)
[2023-10-22] MEDS: SENNA/DOCUSATE SODIUM TABLET 2 TAB PO (08:42)
[2023-10-22] MEDS: ASPIRIN 81 MG ENTERIC TABLET PO (08:42)
[2023-10-22] MEDS: ATORVASTATIN 20 MG TABLET PO (08:43)
[2023-10-22 09:49] VITALS: BP 103/68; PULSE 86
== END 2023-10-22 12:30 | disposition home or self-care (01) ==
LOC: ANHSURGERY 07:27 → ANH3MEDSUR 14:29
PROVIDERS: Physician Assistant Surgical; PCP Family Medicine; Visit Provider Orthopaedic Surgery
PROC: (CPT 23472; principal; 2023-10-21 07:30)
DX: M19.011 Primary osteoarthritis, right shoulder (principal); G89.18 Other acute postprocedural pain; I48.91 Unspecified atrial fibrillation; E78.5 Hyperlipidemia, unspecified; Z79.01 Long term (current) use of anticoagulants; Z87.891 Personal history of nicotine dependence
CPT/HCPCS: 23472; 64415; 36415; 73030; 80048; 85025; 86850; 86900; 86901; 97110; 97116; 97140; 97161; 97165; 97530; 97535; A4565; A9270; C1713; C1776; J0171; J0330; J0690; J1100; J1170; J1885; J2250; J2270; J2371; J2405; J2795; J3010; J3370; J7030; J7120

== ENCOUNTER 2023-12-10 10:20 | Outpatient (CLI) | payer BC, SELFPAY ==
--- NOTE | ~2023-12-10 | XR_ITS ---
Right Shoulder Technique: AP and scapular Y views were obtained. Clinical History: Prosthesis COMPARISON: 10/22/2023 Findings: No fracture or dislocation is seen. Right shoulder arthroplasty unchanged. Soft tissues are unremarkable. Impression: No acute abnormality. Stable right shoulder arthroplasty. Reviewed, dictated and finalized at location . Impression: No acute abnormality. Stable right shoulder arthroplasty.
== END 2023-12-10 10:21 ==
LOC: MICIMG 10:21
PROVIDERS: PCP Family Medicine; Visit Provider Orthopaedic Surgery
DX: Z47.1 Aftercare following joint replacement surgery (principal); Z96.611 Presence of right artificial shoulder joint
CPT/HCPCS: 73030

== ENCOUNTER 2024-01-18 07:50 | Outpatient (CLI) | payer BC, SELFPAY ==
--- NOTE | ~2024-01-18 | US_ITS ---
EXAMINATION: US aorta [facility] DATE: 01/18/2024 08:34 INDICATION: Abdominal aortic aneurysm screening TECHNIQUE: Grayscale, color Doppler, and pulsed Doppler images of the aorta and common iliac arteries were obtained. COMPARISON: None. FINDINGS: The proximal aorta measures 2.7 cm. The mid aorta measures 2.0 cm. The distal aorta measures 1.7 cm. The right common iliac artery measures 1.1 cm. The left common iliac artery measures 1.1 cm. IMPRESSION: 1. Normal caliber abdominal aorta. Reviewed, dictated and finalized at location A.
--- NOTE | ~2024-01-18 | CT_ITS ---
CT Scan of the Chest without Contrast: Clinical Indication: Lung cancer screening, nicotine dependence Technique: Contiguous sections were acquired throughout the chest without intravenous contrast. Dose reduction technique was used on this scan by utilizing automated exposure control and iterative recon struction technique. The dose-length product (DLP) was 119.52 mGy-cm. Findings: There is no evidence of any significant mediastinal, hilar or axillary lymphadenopathy. The mediastin al soft tissues appear normal. There is no evidence of pleural or pericardial effusion. There is mild paraseptal emphysema, as well as peripheral subpleural reticulation and chronic interst itial change, with basilar predominance. 2 mm left lower lobe pulmonary nodule noted. Images through the upper abdomen reveal left hepatic lobe cyst. Impression: Lung RADS 2: Benign appearance. 12 month follow-up screening CT advised. Bibasilar predominant chronic interstitial disease, as detailed above. Reviewed, dictated and finalized at [facility]. Impression: Lung RADS 2: Benign appearance. 12 month follow-up screening CT advised. Bibasilar predominant chronic interstitial disease, as detailed above.
[2024-01-18 08:49] LABS: Prostate Specific Antigen 0.7 ng/mL (< OR = 4.0)
== END 2024-01-18 07:51 | disposition home or self-care (01) ==
LOC: ANHIMG 07:51
PROVIDERS: PCP Family Medicine; Visit Provider Family Medicine
DX: Z12.2 Encounter for screening for malignant neoplasm of respiratory organs (principal); J84.9 Interstitial pulmonary disease, unspecified; R35.1 Nocturia; Z87.891 Personal history of nicotine dependence; Z13.6 Encounter for screening for cardiovascular disorders
CPT/HCPCS: 36415; 71271; 76706; 84153

== ENCOUNTER 2024-04-04 12:03 | Outpatient (CLI) | payer BC, SELFPAY ==
[2024-04-04 12:46] LABS: Rheumatoid Factor < 12.0 IU/ML (<12)
[2024-04-06 14:09] LABS: Anti Cyclic Citrullinated Pept <16 UNITS
== END 2024-04-04 12:04 | disposition home or self-care (01) ==
LOC: ANHLAB 12:05
PROVIDERS: PCP Family Medicine; Visit Provider Internal Medicine Pulmonary Disease
DX: R91.8 Other nonspecific abnormal finding of lung field (principal)
CPT/HCPCS: 36415; 86038; 86039; 86200; 86430

== ENCOUNTER 2024-06-20 15:23 | Outpatient (CLI) | payer BC, SELFPAY ==
--- NOTE | ~2024-06-20 | XR_ITS ---
EXAM: XR shoulder RT min 2V DATE: 06/20/2024 15:39 HISTORY: Z96.611 - Presence of right artificial shoulder joint . COMPARISON: None available. FINDINGS: Decreased mineralization. No fracture or dislocation. No lytic or blastic lesion. Mild deg enerative change at the AC joint. Uncomplicated appearing right shoulder arthroplasty hardware. No er osion or periosteal change. Soft tissues within normal limits. Streaky right basilar opacities and di ffuse mild reticular opacities. IMPRESSION: No acute osseous finding the right shoulder. No radiographic evidence of hardware related complication. Mild senescent change in the lung versus mild interstitial edema. Subsegmental right basilar atelecta sis/scar, infection not excluded. Reviewed, dictated and finalized at location K. STRIAL ELECTRICIAN IMPRESSION: No acute osseous finding the right shoulder. No radiographic eviden ce of hardware related complication. Mild senescent change in the lung versus mild interstitial edema. Subsegmental right basilar atelectasis/scar, infection not excluded.
--- NOTE | ~2024-06-20 | XR_ITS ---
EXAM: XR shoulder LT min 2V DATE: 06/20/2024 15:39 HISTORY: M25.512 - Pain in left shoulder . COMPARISON: None available. FINDINGS: Decreased mineralization. No fracture or dislocation. No lytic or blastic lesion. Mild deg enerative change at the AC joint. Moderate degenerative change at the glenohumeral joint. No erosion or periosteal change. Soft tissues within normal limits. Mild diffuse reticular opacities in left chase g. Streaky left basilar opacities. IMPRESSION: Mild AC joint and moderate glenohumeral joint osteoarthritis. Senescent change in lung versus mild interstitial edema. Likely left basilar atelectasis/scar. Infect ion not excluded. Reviewed, dictated and finalized at location K. GRADER IMPRESSION: Mild AC joint and moderate glenohumeral joint osteoarthritis. Senescent change in lung versus mild interstitial edema. Likely left basilar at electasis/scar. Infection not excluded.
== END 2024-06-20 15:24 | disposition home or self-care (01) ==
LOC: MICIMG 15:25
PROVIDERS: PCP Orthopaedic Surgery; Visit Provider Orthopaedic Surgery
DX: M19.011 Primary osteoarthritis, right shoulder (principal); M19.012 Primary osteoarthritis, left shoulder; Z96.611 Presence of right artificial shoulder joint
CPT/HCPCS: 73030

== ENCOUNTER 2024-07-13 14:25 | Outpatient (CLI) | payer BC, SELFPAY ==
--- NOTE | ~2024-07-13 | XR_ITS ---
XR ribs LT 2V w CXR 2V Ordering provider: Adams Dawson PA-C History: . left lateral and anterior rib pain . Comparison: None. FINDINGS: BONES: Highly suggestive Fracture of the anterior tip of the left seventh rib. MEDIASTINUM: The cardiac silhouette is slightly enlarged. LUNGS: No infiltrates, effusions or pneumothorax. OTHER: No free air under the diaphragm. Right hip arthroplasty. IMPRESSION: 1. Highly suggestive fracture of the anterior tip of the left seventh rib. Clinical correlation advi sed. 2. No acute cardiopulmonary findings. Reviewed, dictated and finalized at location A. ICATION SPEC IMPRESSION: 1. Highly suggestive fracture of the anterior tip of the left seventh rib. Cli nical correlation advised. 2. No acute cardiopulmonary findings.
== END 2024-07-13 14:26 | disposition home or self-care (01) ==
PROVIDERS: PCP Family Medicine; Visit Provider Physician Assistant
DX: R07.81 Pleurodynia (principal)
CPT/HCPCS: 71046; 71100

== ENCOUNTER 2024-10-06 13:54 | Outpatient (CLI) | payer BC, SELFPAY ==
--- NOTE | ~2024-10-06 | CT_ITS ---
EXAMINATION: CT shoulder LT wo con DATE: 10/06/2024 14:24 INDICATION: Left shoulder osteoarthritis. Preoperative planning. TECHNIQUE: Computed tomography (CT) of the left shoulder was performed without intravenous contrast. Automated exposure control and iterative reconstruction technique were employed. The dose-length prod uct was 319.90 mGy-cm. COMPARISON: Left shoulder radiographs 06/20/2024 FINDINGS: There is mild scarring at left lung apex. There is mild emphysema. Bone alignment is normal . No fracture. There is severe osteoarthritis of glenohumeral joint and acromioclavicular joint. Ther e is no asymmetric fatty atrophy of the rotator cuff muscle bellies. IMPRESSION: 1. Severe polyarticular osteoarthritis. Reviewed, dictated and finalized at location A.
--- OUTSIDE RECORDS SUMMARY | 2024-10-06 13:59 | XMS_ITS | Encounter Summary ---
Author Organization [facility] Address [address] [place] [address] Care Team Providers Care Refrigeration Engineer Name Role Phone Unavailable Primary Care Provider Unavailabl e Encounter Details Date Type Department Care Team (Late st Contact Info) Description 10/27/2022 Lab Requisition [facility] Lab [address] [place] [id number] Sukhdev Griffin MD [address] [place] [address] Social History Tobacco Use Types Packs/Day Years Used Date Smoking Tobacco: Never Assessed Sex and Gender Information Value Date Recorded Sex Assigned at Not on file Gender Identity Not on file Sexual Orientation Not on file documented as of this encounter Plan of Treatment Not on file documented as of this encounter Procedures Procedure Name Priority Date/Time Associated Diagnosis Comments DERMATOPATHOLOGY Routine 10/26/2022 12:0 0 AM CDT documented in this encounter Results * DERMATOPATHOLOGY (10/26/2022 12:00 AM CDT) Case Report Dermatopathology Report Case: [id number] Authorizing Provider: Sukhdev Griffin MD Collected: 10/26/2022 12:00 AM Ordering Location: [facility] Lab Received: 10/27/2022 11:28 AM Pathologist: Sharyn Pitts MD Specimen: Skin, left upper cutaneous lip 3:48 PM CDT DERMATOPATHOLOGY LABORATORY Final Diagnosis Specimen A. 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 The specimen consists of a shave biopsy measuring 6x5x3 mm. Jar 0. 3:48 PM CDT DERMATOPATHOLOGY LABORATORY Microscopic Description Specimen A. SKIN, left upper cutaneous lip: Sections show an endophytic lesion with acanthosis consisting of fairly uniform squamous cells with eosinophilic cytoplasm. Squamous eddies are seen toward the base of the lesion. There is a lymphohistiocytic infiltrate within the papillary dermis. COMMENT: This case was also reviewed by Dr. Janny Dodson who agrees with the diagnosis. 3:48 PM CDT DERMATOPATHOLOGY LABORATORY Disclaimer An external and internal positive and negative controls are appropriate for the histochemical, immunohistochemical and immunofluorescence stain(s) in this case (if any), except where stated explicitly. The performance characteristics of the stain(s) cited in this report were developed and its performance characteristic determined by the Dermatopathology Laboratory at [facility], directed by Dr. Jose Adrian. These tests need not be, and therefore are not, approved by the [place] Food and Drug Administration. The tests are used for clinical purposes. Billing Codes Specimen Charges Stain Charges 73163 1 3 3:48 PM CDT DERMATOPATHOLOGY LABORATORY Embedded Images 3:48 PM CDT DERMATOPATHOLOGY LABORATORY Pathology/Cytolog y TISSUE SPECIMEN FROM SKIN / Unknown 10/26/2022 10/27/2022 11:28 AM CDT Sukhdev Griffin MD LAB - PATHOLOGY/CYTO LOGY ORDERABLES DERMATOPATHOLOGY LABORATORY [facility] - Department of Dermatology [address] [phone] documented in this encounter Visit Diagnoses Not on filedocumented in this encounter
--- OUTSIDE RECORDS SUMMARY | 2024-10-06 13:59 | XMS_ITS | Clinical Summary ---
Author Organization [facility] Address [address] [place] [address] Care Team Providers Care Support Associate Name Role Phone Unavailable Primary Care Provider Unavailabl e Source Comments [facility] enavu,non-owned Affiliates and Associated Physician Practices is amultiple site organization consisting of ambulatory clinics and hospital sitesin [place], [place], [place] and [place]. This disclosure is being madepursuant to the Care Everywhere program and may not contain all information available regarding this patient. Last updated 18.[facility] enavu Social History Tobacco Use Types Packs/Day Years Used Date Smoking Tobacco: Never Assessed Sex and Gender Information Value Date Recorded Sex Assigned at Not on file Gender Identity Not on file Sexual Orientation Not on file Plan of Treatment Health Maintenance Due Date Last Done Comments COLOGUARD (AGES 45-75) - COL ON CA SCREENING 1950 COLON MONITORING 1950 COLONOSCOPY - COLON CA SCREENING 1950 CT COLONOGRAPHY - COLON CA SCREENING 1950 Colorectal Cancer Screening 1950 FIT - COLON CA SCREENING 1950 FLEX SIG - COLON CA SCREENING 1950 LIPID TESTING 1950 HEPATITIS C SCREENING 03/02/1968 DTAP/TDAP/TD VACCINES (1 - Tdap) 1969 PNEUMOCOCCAL VACCINE 50+ (1 of 1 - PCV) 2000 ZOSTER VACCINE (1 of 2) 2000 COVID-19 VACCINE ( - 2023-2 5 season) 2024 INFLUENZA VACCINE (#1) 2024 DEPRESSION SCREENING 07/12/2024 Respiratory Syncytial Virus (RSV) Vaccine Pt: or over 60 yrs (1 - 1-dose 75+ series) 2025 HEPATITIS B VACCINE Aged Out No longe r eligible based on patient's age to complete this topic HIB VACCINE Aged Out No longer eligi ble based on patient's age to complete this topic HPV VACCINE Aged Out No longer eligi ble based on patient's age to complete this topic MENINGOCOCCAL (Group B) VACC INE SHARED DECISION-MAKING Aged Out No longer eligibl e based on patient's age to complete this topic MENINGOCOCCAL GROUPS A/C/Y/W VACCINE Aged Out No longer eligible b ased on patient's age to complete this topic
--- OUTSIDE RECORDS SUMMARY | 2024-10-06 13:59 | XMS_ITS | Referral Summary ---
Author Organization [facility] [place] [address] Address [address] [place] [address] Care Team Providers Care Community Affairs Director Name Role Phone Kevin Patel MD Primary Care Provider Allergies Active Allergy Reactions Criticality Noted Date Comments Erythromycin Nausea only Low Medications omeprazole (PriLOSEC) 20 mg capsule take 1 capsule by oral route every day before a meal 0 0 06/13/2014 Active atorvastatin (LIPITOR) 20 mg tablet take 1 tablet by oral route every day 0 0 08/22/2014 Active diphenhydrAMINE -acetaminophen (TYLENOL PM) 25-500 mg tablet Take 1 tablet by mouth nightly as needed for sleep Active sildenafiL, pulm.hypertensi on, (REVATIO) 20 mg tablet TAKE 2 TO 5 TABLETS BY MOUTH NEEDED 03/15/2020 Active acetaminophen (TYLENOL) 500 mg tablet Take 1 tablet (500 mg total) by mouth every 6 (six) hours as needed for pain Active Xarelto 20 mg tablet TAKE 1 TABLET(20 MG) BY MOUTH DAILY 90 tablet 2 08/22/2024 Active metoprolol tartrate (LOPRESSOR) 50 mg immediate release tabletIndicatio ns:PAF (paroxysmal atrial fibrillation) (HCC) TAKE 1 TABLET(50 MG) BY MOUTH TWICE DAILY 180 tablet 2 08/22/2024 Active Active Problems Problem Noted Date Diagnosed Date Permanent atrial fibrillation 05/07/2020 Nausea 03/31/2017 Hyperthyroidism 02/15/2017 Hyperlipidemia LDL goal <100 01/28/2017 Chronic anticoagulation 01/28/2017 History of anticoagulant therapy 08/22/2014 Overview (10/16/2016): Chronic anticoagulation Pure hypercholesterolemia 07/11/2014 Overview (10/16/2016): Pure hypercholesterolemia 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/27/2011 Anterior tibialis tendinitis 08/27/2011 Resolved Problems Problem Noted Date Diagnosed Date Resolved Date PAF (paroxysmal atrial fibrillation) 07/11/2014 05/07/2020 Overview (10/16/2016): Atrial fibrillation Social History Tobacco Use Types Packs/Day Years Used Date Smoking Tobacco: Former Cigarettes Q uit: 02/15/2010 Smokeless Tobacco: Never Tobacco Cessation:Counseling Given: Not Answered Alcohol Use Standard Drinks/Week Comments Yes 2 (1 standard drink = 0.6 oz pur e alcohol) rarely Sex and Gender Information Value Date Recorded Sex Assigned at Not on file Legal Sex Male 9:22 AM TIN WORKER Gender Identity Male 04/08/2021 5:47 AM CDT Sexual Orientation Straight 04/08/2021 5: 48 AM CDT Last Filed Vital Signs Vital Sign Reading Time Taken Comments Blood Pressure 110/80 06/05/2024 8:00 AM TIN WORKER Pulse 90 06/05/2024 8:00 AM TIN WORKER Temperature - - Respiratory Rate 14 01/28/2017 8:34 AM CDT Oxygen Saturation 99% 06/05/2024 8:00 AM TIN WORKER Inhaled Oxygen Concentration - - Weight 78.9 kg (174 lb) 06/05/2024 8:00 AM TIN WORKER Height 165.1 cm (5' 5 ) 06/05/2024 8:00 AM TIN WORKER Body Mass Index 28.96 06/05/2024 8:00 AM TIN WORKER Plan of Treatment Not on file Insurance [facility] FEDERAL Member Subscriber Plan / Payer (Ef fective 2015-Present) Name:Gen Downey Relation to Subscriber:Self Name:Gen Downey Payer ID:[id number] (NAIC) Group ID:[id number] Type:BC ALLIANCE Address: [facility] [id number] [place] [id number] Care Teams Community Affairs Director Relationship Specialty Start Date End Date Kevin Patel MD [address] [facility] [address] [place] [address] PCP - General Family Medicine 05/24/23
--- OUTSIDE RECORDS SUMMARY | 2024-10-06 13:59 | XMS_ITS | CONTINUITY OF CARE DOCUMENT ---
Author Name grace, samantaser Address Unknown Organization [facility] Address [address] [place] [address] Phone [phone] Care Team Providers Care Clinical Project Assistant Name Role Phone Oswald FORMAN, Bradford Unavailable [phone] NATTY ALLEN MD Unavailable NATTY ALLEN MD Unavailable PROBLEMS Condition Status Date Provider Notes Atrial fibrillation active Hyacinth Ahumada RN Hyperlipidemia active ? Hyacinth Ahumada RN Tobacco use quit active Hyacinth Ahumada RN ENCOUNTERS Date Type Provider Location Encounter Diag nosis 9 - 0 In-person encounter Office Visit Bradford Akers MD [facility] Office Atrial fibrillationHyperlipidemiaTobacco use quit VITAL SIGNS Date Observation Value Provider Body Mass Index (Ratio) 28.62 kg/m2 Eleni english Bar blood pressure, diastolic 82 mm[Hg] [place] Bar blood pressure, systolic 134 mm[Hg] Saba zhang Bar pulse rate 108 /min Bindu Bar oxygen saturation, oximetry 97 % B[facility] Bar respiratory rate E&M 17 /min [facility] weight E&M 172 [lb_av] Bindu Bar height E&M 65 [in_i] Bindu Bar ALLERGIES Allergy Name Onset Date Reaction Criticality Status ERYTHROMYCIN upset stomach Low Criticality acti ve HISTORY OF MEDICATION USE Medication Status Instructions Dates Provider Indications Com ments XARELTO 20 MG ORAL TABLET active One tab. daily with evening meal Hyacinth Ahumada RN TOPROL XL 50 MG ORAL TABLET EXTENDED RELEASE 24 HOUR active ONE TAB DAILY Hyacinth Ahumada RN FERROUS SULFATE 325 (65 Fe) MG ORAL TABLET active ONE PER DAY Bindu Bar OMEPRAZOLE 20 MG ORAL TABLET DELAYED RELEASE active 1 daily Bindu Bar LIPITOR 20 MG ORAL TABLET active ONE TAB. DAILY Bindu Bar VIAGRA 100 MG ORAL TABLET active as needed Bindu Bar SOCIAL HISTORY Date Observation Value Provider social history reviewed E&M revi ewed - no changes required Bradford Akers MD social history E&M Patient is a former smoker. R egular Exercise - yes Smoking History: P atambreen is a former smoker. P atambreen has been counseled to quit. Hyacinth Ahumada RN smoking/tobacco cess ation, patient education and counseling yes Bindu Bar smoking, year quit 2009 Bindu M Ed cigarette use yes Bindu Dipika smoking status Former smoker Hyacinth preciado RN FAMILY HISTORY Family Member Condition Full Brother Family History of Co ronary Artery Disease: INSURANCE PROVIDERS Payer name Policy type / Coverage type [place] red alliance party ID [facility] [id number] TREATMENT PLAN Date Name Performer new pt - PDL: He had routine check-up 03/2014 and was found to be in AFIB. He denies dizziness, palpitations, CP, SOB. He was also found to have anemia. Saw GI due to anemia, had EGD, colonoscopy which were fine and so felt to be low iron anemia, H/H 12. H e walks about a mile 2x/day with walking his dogs. He also does a lot of yard work and denies CP, SOB with exertion. tsh, electrolytes wnl s tart noac s chedule for LASHON/DCCV He has been having trouble sleeping, poor sleep habits, snoring, only sleeps few hours and then wakes up. - consider sleep study Hyacinth Ahumada RN new pt - PDL:LDL 84 on current m eds Hyacinth Ahumada RN HISTORY OF PROCEDURES Procedure Date Procedure Name Provider Procedure Notes S tatus EKG Bradford Akers MD completed
--- OUTSIDE RECORDS SUMMARY | 2024-10-06 13:59 | XMS_ITS | Clinical Summary ---
Author Organization [facility] [address] Address [address] [place] [address] Care Team Providers Care Glaze Handler Name Role Phone Kevin Patel MD Primary [...] fibrillation) 07/11/2014 05/07/2020 Overview (10/16/2016): Atrial fibrillation Medical History Medical History Date Comments Hx Other Medical atrial fibrilla tion, erectile dysfunction, and MELISSA; Comments: MAF 06/13/2014 - Family History Medical History Relation Name Comments Atrial fibrillation Brother Atrial f ibrillation; Pancreatic cancer Father Cancer, pa ncreas; Cause of : Cancer, pancreas Lung cancer Mother Cancer, lung; C ause of : Cancer, lung Relation Name Status Comments Brother Father Mother Social History Tobacco Use Types Packs/Day Years Used Date Smoking Tobacco: Former Cigarettes Q uit: 02/15/2010 Smokeless Tobacco: Never Tobacco Cessation:Counseling Given: Not Answered Alcohol Use Standard Drinks/Week Comments Yes 2 (1 standard drink = 0.6 oz pur e alcohol) rarely Sex and Gender Information Value Date Recorded Sex Assigned at Not on file Legal Sex Male 9:22 AM PRODUCT EVANGELIST Gender Identity Male 04/08/2021 5:47 AM CDT Sexual Orientation Straight 04/08/2021 5: 48 AM CDT Obstetrics History Last Filed Vital Signs Vital Sign Reading Time Taken Comments Blood Pressure 110/80 06/05/2024 8:00 AM PRODUCT EVANGELIST Pulse 90 06/05/2024 8:00 AM PRODUCT EVANGELIST Temperature - - Respiratory Rate 14 01/28/2017 8:34 AM CDT Oxygen Saturation 99% 06/05/2024 8:00 AM PRODUCT EVANGELIST Inhaled Oxygen Concentration - - Weight 78.9 kg (174 lb) 06/05/2024 8:00 AM PRODUCT EVANGELIST Height 165.1 cm (5' 5 ) 06/05/2024 8:00 AM PRODUCT EVANGELIST Body Mass Index 28.96 06/05/2024 8:00 AM PRODUCT EVANGELIST Plan of Treatment Health Maintenance Due Date Last Done Comments Colon Cancer Screening-Colonoscopy 1950 Depression Screening 1950 Fall Risk Assessment 1950 Hepatitis C Screening 1950 DTaP/Tdap/Td Vaccine (1 - Tdap) 1961 Hepatitis B Screening 1968 Pneumococcal vaccine 65+ (1 of 1 - PCV) 2000 Abdominal Aortic Aneurysm (A AA) Screen 2015 Well Visit 65+ 2015 Influenza Vaccine (#1) 2024 0, 04/27/2019, 03/27/2018, Additional history exists Zoster Vaccine Completed 03/14/2019, 09/09, 04/26/2013 Insurance [facility] FEDERAL Care Teams Glaze Handler Relationship Specialty Start Date End Date Kevin Patel MD [address] [place] [address] PCP - General Family Medicine 05/24/23
--- OUTSIDE RECORDS SUMMARY | 2024-10-06 13:59 | XMS_ITS | Continuity of Care Document ---
Author Organization [facility] Address [address] [place] [address] Phone Care Team Providers Care Lean Manufacturing Coordinator Name Role Phone Kun Bah MD Unavailable [...] Diagnoses Date Provider Providers Copied on Encounter tuul, [address], [place], [place], [address] , tel: [phone] [facility] No Information [address], [address], [address], . [phone] tuul, [address], [place], [place], [address] , tel: [phone] [facility] No Information [address], [address], [place], [place], [address], . tel:[phone] tuul, [address], [place], [place], [address] , tel: [phone] [facility] No Information 0 Olvin Tristan. [address], [address], [place], [place], [address], . tel:[phone] PREVENTATIVE -EST: 65 & OVER tuul, [address], [place], [place], [address] , tel: [phone] [facility] Complete Physical Examination (chief complaint)Ch ronic Conditions (chief complaint) Body mass index (BMI) 29.0-29.9, adultEncounter for general adult medical examination without abnormal findingsHyperli pidemia, unspecifiedGast ro-esophageal reflux disease without esophagitisParo xysmal atrial fibrillation Olvin Tristan. [address], [address], [place], [place], [address], [place]. tel:[phone] Referring Provider: Kun Larkin, [address], [place], [address] . tel:[phone] [employer], [address], [place], [place], [address] , [place] tel: [phone] [facility] No Information Olvin Tristan. [address], [address], [place], [place], [address], [place]. tel:[phone] [employer], [address], [place], [place], [address] , [place] tel: [phone] [facility] Persistent atrial fibrillationEnc ounter for general adult medical examination without abnormal findingsHyperli pidemia, unspecifiedGast ro-esophageal reflux disease without esophagitisUnsp ecified kyphosis, cervical region 8 [address], [address], [place], [place], [address], [place]. tel:[phone] Referring Provider: [address], [place], [address] . tel:[phone] tuul, [address], [place], [place], [address] , tel: [phone] [facility] Iron deficiency anemia, unspecified iron deficiency anemia typePersistent atrial fibrillationHyp erlipidemia, unspecifiedGast ro-esophageal reflux disease without esophagitisPred iabetesEncounte r for HCV screening test for low risk patient [facility] Debra. [address], [address], [place], [place], [address], [place]. tel:[phone] Referring Provider: [address], [place], [address] . tel:[phone] [employer], [address], [place], [place], [address] , [place] tel: [phone] [facility] Encounter for general adult medical examination without abnormal findingsGastro- esophageal reflux disease without esophagitisHype rlipidemia, unspecifiedPers istent atrial fibrillationIro n deficiency anemia, unspecified iron deficiency anemia typeEncounter for immunization 6 [address], [address], [place], [place], [address], . tel:[phone] Referring Provider: Kun Larkin, [address], [place], [address] . tel:[phone] tuul, [address], [place], [place], [address] , tel: [phone] [facility] ROUTINE MEDICAL EXAMOther and unspecified hyperlipidemiaE sophageal refluxAtrial FibrillationPre diabetes 4 Olvin Tristan. [address], [place], [place], [address], . [phone] Referring Provider: Kun Larkin, [address], [place], [address] . tel:[phone] tuul, [address], [place], [place], [address] , tel: [phone] [facility] No Information 3 [address], [place], [place], [address], . tel:[phone] tuul, [address], [place], [place], [address] , tel: [phone] [facility] No Information 3 [address], [place], [place], [address], [place]. tel:[phone] tuul, [address], [place], [place], [address] , tel: [phone] [facility] Routine general medical examination at a health care facilityOther and unspecified hyperlipidemiaR outine general medical examination at a health care facilityPersona l history of colonic polypsPrediabet es 3 [address], [place], [place], [address], [place]. tel:[phone] Referring Provider: Kun Larkin, [address], [place], [address] . tel:[phone] [facility], [address], [place], [place], [address] , [place] tel: [phone] [facility] LONG-TERM USE MEDS NEC May-0 8201 0 Olvin Tristan. [address], [address], [place], [place], [address], [place]. tel:[phone] [facility], [address], [place], [place], [address] , [place] tel: [phone] [facility] HYPERLIPIDEMIA NEC/NOS May- 8201 0 Conversion Doctor. [address] [place] [address], [address], [place]. [employer], [address], [place], [place], [address] , tel: [phone] [facility] VACCINATION FOR TD-DT Sep-3 0-201 [address], [place], [place], [address], [place]. tel:[phone] tuul, [address], [place], [place], [address] , [place] tel: [phone] [facility] ESOPHAGEAL REFLUX Mar-2 0 Conversion Doctor. [address] [place] [address], [address], [place]. tuul, [address], [place], [place], [address] , [place] tel: [phone] [facility] SCREEN-DIABETES MELLITUSSCRN-IS CHEMIC HEART DISSCREEN-THYRO ID DISORDERSCREEN MALIG NEOP-COLONCARDI AC DYSRHYTHMIAS NECSCRN MALIG NEOP-PROSTATEKY PHOSIS NOSROUTINE MEDICAL EXAMSCREEN-DEFI C ANEMIA NEC Sep-2 9-201 0 Olvin Tristan[address], [address], [place], [place], [address], [place]. tel:[phone] [facility], [address], [place], [place], [address] , tel: [phone] [facility] IMPOTENCE, ORGANIC ORIGN 2 0-200 8 Conversion Doctor. [address], [place], [address], [place]. [facility], [address], [place], [place], [address] , tel: [phone] [facility] No Information May-0 6-200 5 Olvin Tristan. [address], [place], [place], [address], [place]. tel:[phone] [facility], [address], [place], [place], [address] , tel: [phone] [facility] No Information May-0 3-200 5 Olvin Tristan. [address], [place], [place], [address], . tel:[phone] [facility], [address], [place], [place], [address] , tel: [phone] [facility] TETANUS TOXOID INOCULAT 2 1-200 0 Olvin Tristan. [address], [place], [place], [address], [place]. tel:[phone] Family History Family Member Type Diagnosis Age [...] or older) administered Source: New Immunization Record 86684 - TD administered Source: Source Unspecified Payers Payer name Insurance type Covered libertarian ID Authoriza tion(s) BCBS ACCESS BL [id number] BCBS INACTIVE OUT OF STATE BL [id number] BCBS INACTIVE OUT OF STATE BL [id number] BCBS INACTIVE OUT OF STATE BL [id number] BCBS INACTIVE OUT OF STATE BL [id number] Social History Type Description Quantity Date Captured [...]
== END 2024-10-06 13:55 | disposition home or self-care (01) ==
PROVIDERS: PCP Family Medicine; Visit Provider Orthopaedic Surgery
DX: M19.012 Primary osteoarthritis, left shoulder (principal); Z01.818 Encounter for other preprocedural examination
CPT/HCPCS: 73200

== ENCOUNTER 2024-12-22 10:54 | Outpatient (CLI) | payer BC, SELFPAY ==
--- OUTSIDE RECORDS SUMMARY | 2024-12-22 11:00 | XMS_ITS | Continuity of Care Document ---
Author Organization [facility] Address [address] [place] [address] Phone Care Team Providers Care Wireless Cellular Technician Name Role Phone Kun Bah MD Unavailable [...] Diagnoses Date Provider Providers Copied on Encounter [facility], [address], [place], [place], [address] , tel: [phone] [facility] Internal Medicine No Information 1 Olvin Tristan. [address], [address], [address], . [phone] [facility], [address], [place], [place], [address] , tel: [phone] [facility] Internal Medicine No Information 1 Olvin Tristan. [address], [address], [place], [place], [address], . tel:[phone] [employer], [address], [place], [place], [address] , tel: [phone] [facility] Internal Medicine No Information 0 Olvin Tristan. [address], [address], [place], [place], [address], . tel:[phone] PREVENTATIVE -EST: 65 & OVER [employer], [address], [place], [place], [address] , tel: [phone] [facility] Internal Medicine Complete Physical Examination (chief complaint)Ch ronic Conditions (chief complaint) Body mass index (BMI) 29.0-29.9, adultEncounter for general adult medical examination without abnormal findingsHyperli pidemia, unspecifiedGast ro-esophageal reflux disease without esophagitisParo xysmal atrial fibrillation Olvin Tristan. [address], [address], [place], [place], [address], [place]. tel:[phone] Referring Provider: Kun Larkin, [address], [place], [address] . tel:[phone] [facility] [employer], [address], [place], [place], [address] , [place] tel: [phone] [facility] Internal Medicine No Information Olvin Tristan. [address], [address], [place], [place], [address], [place]. tel:[phone] [facility] [employer], [address], [place], [place], [address] , [place] tel: [phone] [facility] Persistent atrial fibrillationEnc ounter for general adult medical examination without abnormal findingsHyperli pidemia, unspecifiedGast ro-esophageal reflux disease without esophagitisUnsp ecified kyphosis, cervical region 8 Olvin Tristan. [address], [address], [place], [place], [address], [place]. tel:[phone] Referring Provider: [address], [place], [address] . tel:[phone] [employer], [address], [place], [place], [address] , tel: [phone] [facility] Iron deficiency anemia, unspecified iron deficiency anemia typePersistent atrial fibrillationHyp erlipidemia, unspecifiedGast ro-esophageal reflux disease without esophagitisPred iabetesEncounte r for HCV screening test for low risk patient [facility] Debra. [address], [address], [place], [place], [address], [place]. tel:[phone] Referring Provider: [address], [place], [address] . tel:[phone] [facility] [employer], [address], [place], [place], [address] , [place] tel: [phone] [facility] Encounter for general adult medical examination without abnormal findingsGastro- esophageal reflux disease without esophagitisHype rlipidemia, unspecifiedPers istent atrial fibrillationIro n deficiency anemia, unspecified iron deficiency anemia typeEncounter for immunization 6 Olvin [address], [address], [place], [place], [address], . tel:[phone] Referring Provider: Kun Larkin, [address], [place], [address] . tel:[phone] [facility], [address], [place], [place], [address] , tel: [phone] [facility] ROUTINE MEDICAL EXAMOther and unspecified hyperlipidemiaE sophageal refluxAtrial FibrillationPre diabetes 4 Olvin Tristan. [address], [address], [place], [place], [address], . [phone] Referring Provider: Kun Larkin, [address], [place], [address] . tel:[phone] [employer], [address], [place], [place], [address] , tel: [phone] [facility] No Information 3 Olvin Tr[address]. [address], [address], [place], [place], [address], . tel:[phone] [employer], [address], [place], [place], [address] , tel: [phone] [facility] No Information 3 Olvin Tirstan. [address], [address], [place], [place], [address], [place]. tel:[phone] [facility], [address], [place], [place], [address] , tel: [phone] [facility] Routine general medical examination at a health care facilityOther and unspecified hyperlipidemiaR outine general medical examination at a health care facilityPersona l history of colonic polypsPrediabet es 3 Olvin [address], [address], [place], [place], [address], [place]. tel:[phone] Referring Provider: Kun Larkin, [address], [place], [address] . tel:[phone] [facility], [address], [place], [place], [address] , [place] tel: [phone] [facility] LONG-TERM USE MEDS NEC May-0 8201 0 Olvin Tristan. [address], [address], [place], [place], [address], [place]. tel:[phone] [facility], [address], [place], [place], [address] , [place] tel: [phone] [facility] HYPERLIPIDEMIA NEC/NOS May- 8201 0 Conversion Doctor. [address] [place] [address], [address], [place]. [facility] [employer] [facility], [address], [place], [place], [address] , tel: [phone] [facility] VACCINATION FOR TD-DT Sep-3 0-201 0 Olvin Tristan. [address], [address], [place], [place], [address], [place]. tel:[phone] [facility], [address], [place], [place], [address] , [place] tel: [phone] [facility] ESOPHAGEAL REFLUX Mar-2 0 Conversion Doctor. [address] [place] [address], [address], [place]. [facility], [address], [place], [place], [address] , [place] tel: [phone] [facility] SCREEN-DIABETES MELLITUSSCRN-IS CHEMIC HEART DISSCREEN-THYRO ID DISORDERSCREEN MALIG NEOP-COLONCARDI AC DYSRHYTHMIAS NECSCRN MALIG NEOP-PROSTATEKY PHOSIS NOSROUTINE MEDICAL EXAMSCREEN-DEFI C ANEMIA NEC Sep-2 9-201 0 Olvin Tristan. [address], [address], [place], [place], [address], [place]. tel:[phone] [facility], [address], [place], [place], [address] , tel: [phone] [facility] IMPOTENCE, ORGANIC ORIGN 2 0-200 8 Conversion Doctor. [address], [place], [address], [place]. [facility], [address], [place], [place], [address] , tel: [phone] [facility] No Information May-0 6-200 5 Olvin Tristan. [address], [address], [place], [place], [address], [place]. tel:[phone] [facility], [address], [place], [place], [address] , tel: [phone] [facility] No Information May-0 3-200 5 Olvin Tristan. [address], [address], [place], [place], [address], . tel:[phone] [facility], [address], [place], [place], [address] , tel: [phone] [facility] TETANUS TOXOID INOCULAT 2 1-200 0 Olvin Tristan. [address], [address], [place], [place], [address], [place]. tel:[phone] Family History Family Member Type Diagnosis Age [...] or older) administered Source: New Immunization Record 65134 - TD administered Source: Source Unspecified Payers Payer name Insurance type Covered libertarian ID Authoriza tion(s) BCBS ACCESS BL [id number] BCBS INACTIVE OUT OF STATE BL [id number] BCBS INACTIVE OUT OF STATE BL [id number] BC[employer] INACTIVE OUT OF STATE BL [id number] BCBS INACTIVE OUT OF STATE BL [id number] Social History Type Description Quantity Date Captured [...]
--- OUTSIDE RECORDS SUMMARY | 2024-12-22 11:00 | XMS_ITS | Referral Summary ---
Author Organization [facility] [address] Address [address] [place] [address] Care Team Providers Care Rubber Grinder Name Role Phone Kevin Patel MD Primary [...] on file Legal Sex Male 9:22 AM COMMERCIAL STRIPPER Gender Identity Male 04/08/2021 5:47 AM CDT Sexual Orientation Straight 04/08/2021 5: 48 AM CDT Last Filed Vital Signs Vital Sign Reading Time Taken Comments Blood Pressure 110/80 06/05/2024 8:00 AM COMMERCIAL STRIPPER Pulse 90 06/05/2024 8:00 AM COMMERCIAL STRIPPER Temperature - - Respiratory Rate 14 01/28/2017 8:34 AM CDT Oxygen Saturation 99% 06/05/2024 8:00 AM COMMERCIAL STRIPPER Inhaled Oxygen Concentration - - Weight 78.9 kg (174 lb) 06/05/2024 8:00 AM COMMERCIAL STRIPPER Height 165.1 cm (5' 5) 06/05/2024 8:00 AM COMMERCIAL STRIPPER Body Mass Index 28.96 06/05/2024 8:00 AM COMMERCIAL STRIPPER Plan of Treatment Not on file Insurance [facility] FEDERAL Member Subscriber Plan / Payer (Ef fective 2015-Present) Name:Gen Downey Relation to Subscriber:Self Name:Gen Downey Payer ID:[id number] (NAIC) Group ID:[id number] Type:BC ALLIANCE Address: [facility] [id number] [place] [id number] Care Teams Rubber Grinder Relationship Specialty Start Date End Date Kevin Patel MD [address] [facility] [address] [place] [address] PCP - General Family Medicine 05/24/23
--- OUTSIDE RECORDS SUMMARY | 2024-12-22 11:00 | XMS_ITS | Clinical Summary ---
Author Organization [facility] [address] Address [address] [place] [address] Care Team Providers Care Design Editor Name Role Phone Kevin Patel MD Primary [...] on file Legal Sex Male 9:22 AM CUSTOMER EXPERIENCE LEADER Gender Identity Male 04/08/2021 5:47 AM CDT Sexual Orientation Straight 04/08/2021 5: 48 AM CDT Obstetrics History Last Filed Vital Signs Vital Sign Reading Time Taken Comments Blood Pressure 110/80 06/05/2024 8:00 AM CUSTOMER EXPERIENCE LEADER Pulse 90 06/05/2024 8:00 AM CUSTOMER EXPERIENCE LEADER Temperature - - Respiratory Rate 14 01/28/2017 8:34 AM CDT Oxygen Saturation 99% 06/05/2024 8:00 AM CUSTOMER EXPERIENCE LEADER Inhaled Oxygen Concentration - - Weight 78.9 kg (174 lb) 06/05/2024 8:00 AM CUSTOMER EXPERIENCE LEADER Height 165.1 cm (5' 5) 06/05/2024 8:00 AM CUSTOMER EXPERIENCE LEADER Body Mass Index 28.96 06/05/2024 8:00 AM CUSTOMER EXPERIENCE LEADER Plan of Treatment Health Maintenance Due Date Last Done Comments Colon Cancer Screening-Colonoscopy 1950 Depression Screening 1950 Fall Risk Assessment 1950 Hepatitis C Screening 1950 DTaP/Tdap/Td Vaccine (1 - Tdap) 1961 Hepatitis B Screening 1968 Pneumococcal vaccine 65+ (1 of 1 - PCV) 2000 Abdominal Aortic Aneurysm (A AA) Screen 2015 Well Visit 65+ 2015 Influenza Vaccine (Season Ended) 2025 04/17/2020, 04/27/2019, 03/27/2018, Additional history exists Zoster Vaccine Completed 03/14/2019, 09/09, 04/26/2013 Insurance [facility] FEDERAL Care Teams Design Editor Relationship Specialty Start Date End Date Kevin Patel MD [address] [place] [address] PCP - General Family Medicine 05/24/23
--- OUTSIDE RECORDS SUMMARY | 2024-12-22 11:00 | XMS_ITS | Clinical Summary ---
Author Organization [facility] Address [address] [place] [address] Care Team Providers Care Snowboarding Instructor Name Role Phone Unavailable Primary Care Provider Unavailabl e Source Comments [facility] [employer],non-owned Affiliates and Associated Physician Practices is amultiple site organization consisting of ambulatory clinics and hospital sitesin [place], [place], [place] and [place]. This disclosure is being madepursuant to the Care Everywhere program and may not contain all information available regarding this patient. Last updated 18.[facility] Social History Tobacco Use Types Packs/Day Years Used Date Smoking Tobacco: Never Assessed Sex and Gender Information Value Date Recorded Sex Assigned at Not on file Legal Sex Male 11:24 AM CDT Gender Identity Not on file Sexual Orientation [...] VACCINE ( - 2023-2 5 season) 2024 DEPRESSION SCREENING 07/12/2024 Respiratory Syncytial Virus (RSV) Vaccine Pt: or over 60 yrs (1 - 1-dose 75+ series) 2025 INFLUENZA VACCINE (Season Ended) 2025 HEPATITIS B VACCINE Aged Out No [...]
--- OUTSIDE RECORDS SUMMARY | 2024-12-22 11:00 | XMS_ITS | Encounter Summary ---
Author Organization [facility] Address [address] [place] [address] Care Team Prov[address] Care Ct Tech Name Role Phone Unavailable Primary Care Provider Unavailabl e Encounter Details Date Type Department Care Team (Late st Contact Info) Description 10/27/2022 Lab Requisition [facility] DermPath Lab [address] [place] [id number] Sukhdev Griffin MD [address] [place] [address] Social History Tobacco Use Types Packs/Day [...] AM CDT) Case Report Dermatopathology Report Case: [id number] Authorizing Provider: Sukhdev Griffin MD Collected: 10/26/2022 12:00 AM Ordering Location: [facility] DermPath Lab Received: 10/27/2022 11:28 AM Pathologist: Sharyn Pitts MD Specimen: Skin, left upper cutaneous lip 3:48 PM CDT DERMATOPATHOLOGY LABORATORY Final Diagnosis Specimen A. 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 The specimen consists of a shave biopsy measuring 6x5x3 mm. Jar 0. 3 3:48 PM CDT DERMATOPATHOLOGY LABORATORY Microscopic Description [...] Janny Dodson who agrees with the diagnosis. 3 3:48 PM CDT DERMATOPATHOLOGY LABORATORY Disclaimer An external and internal positive and negative controls are appropriate for the histochemical, immunohistochemical and immunofluorescence stain(s) in this case (if any), except where stated explicitly. The performance characteristics of the stain(s) cited in this report were developed and its performance characteristic determined by the Dermatopathology Laboratory at [facility], directed by Dr. Jose Adrian. These tests need not be, and therefore are not, approved by the [place] Food and Drug Administration. The tests are used for clinical purposes. Billing Codes Specimen Charges Stain Charges 75802 1 3 3:48 PM CDT DERMATOPATHOLOGY LABORATORY Embedded Images 3 3:48 PM CDT DERMATOPATHOLOGY LABORATORY Pathology/Cytolog y TISSUE SPECIMEN FROM SKIN / Unknown 10/26/2022 10/27/2022 11:28 AM CDT us Sukhdev Griffin MD LAB - PATHOLOGY/CYTOLOGY ORD ERABLES Final Result DERMATOPATHOLOGY LABORATORY [facility] - Department of Dermatology [address] [place] [address], [facility] [phone] documented in this encounter Visit Diagnoses Not on filedocumented in this encounter
--- NOTE | 2024-12-22 12:00 | ECG_ITS ---
Test Date: 2024-12-22 12:15:49 Measurements Intervals Leslie Rate: 77 P: 0 NH: 0 QRS: 2 QRSD: 75 T: -9 QT: 379 QTc: 430 Interpretive Statements ATRIAL FIBRILLATION CONSIDER RIGHT VENTRICULAR CONDUCTION DELAY BORDERLINE ST-T WAVE ABNORMALITY- INFERIOR LEADS BASELINE ARTIFACT- I, II, III, AVR, AVL A,VF ABNORMAL ECG No previous ECG available for comparison Electronically Signed On 12-22-2024 13:16:29 CDT by Oseas Graf D.O.
[2024-12-22 12:24] LABS: Basophils Absolute Auto 0.1 K/mm3 (0.0-0.1); Basophils Percent Auto 0.7 % (0.2-1.2); Eosinophils Absolute Auto 0.1 K/mm3 (0-0.3); Eosinophils Percent Auto 1.6 % (0-4.4); Hematocrit 43.7 % (42.0-52.0); Hemoglobin 13.9 g/dL (14.0-18.0); Immature Granulocyte Absolute 0.01 K/mm3 (0.00-0.031); Immature Granulocyte Percent A 0.1 % (0-0.5); Lymphocytes Absolute Auto 1.78 K/mm3 (0.9-3.2); Lymphocytes Percent Auto 23.9 % (18.3-44.2); Mean Corpuscular HGB Conc 31.8 g/dl (32-36); Mean Corpuscular Volume 91.2 fl (80-100); Mean Platelet Volume 11.1 fl (7.4-10.4); Monocytes Absolute Auto 0.6 K/mm3 (0.1-0.6); Monocytes Percent Auto 7.8 % (2.6-8.5); Neutrophils Absolute Auto 4.9 K/mm3 (1.3-6.7); Neutrophils Percent Auto 65.9 % (45.5-73.1); Platelet Count Result 222 k/mm3 (150-375); Red Blood Count 4.79 M/mm3 (4.6-6.20); Red Cell Distribution Width 13.3 % (11.5-14.5); White Blood Count 7.4 K/mm3 (4.5-10.0)
[2024-12-22 13:32] LABS: MRSA (PCR) NOT DETECTED (NOT DETECTE)
== END 2024-12-22 10:55 | disposition home or self-care (01) ==
PROVIDERS: PCP Family Medicine; Visit Provider Orthopaedic Surgery
DX: M19.012 Primary osteoarthritis, left shoulder (principal); I48.91 Unspecified atrial fibrillation; Z01.818 Encounter for other preprocedural examination; I45.9 Conduction disorder, unspecified
CPT/HCPCS: 36415; 85025; 87641; 93005

== ENCOUNTER 2025-01-18 01:50 | Day surgery (SDC) | payer BC, SELFPAY ==
--- NOTE | 2024-12-22 10:56 | PC.NURSE ---
Report to the Outpatient Waiting Room, entrance under the green pavilion located off [facility], at time _6 AM on date _01/18/25 . Planned Procedure Time: ___7:30 AM .? Time changes happen often and if your time is changed the preop area will call you the afternoon before. - You and your visitor will be asked to self-screen and do not enter if you have any COVID symptoms. Please call surgeon if you need to reschedule. - A mask is optional within the hospital at this time. Patients may have clear liquids (water, carbonated beverages, clear teas, apple juice) until 3 hours prior to surgery( 4:30 AM) with a maximum of 20 ounces. - No food from midnight until time of surgery and no smoking, or chewing tobacco (or any form of nicotine). No chewing gum, candy or mints. - Take only the following medications with a SIP of water on the morning of surgery: ___METOPROLOL DO NOT STOP ANY OF YOUR OTHER PRESCRIPTION MEDICATIONS PRIOR TO SURGERY EXCEPT THE FOLLOWING Hold all vitamins and supplements for 3 days per anesthesiologist.LAST DOSE 01/14/25 Medications to discontinue per physician HOLD XARELTO 3 DAYS PRE OP PER DR GIBBS Date to take last dose___01/14/25 Please no make-up, nail swazi, hairspray, perfume, deodorant, or body powder the day of surgery.? No jewelry (including any body piercings) or valuables the day of surgery, leave them at home.? Please take a shower or bath the night before, or the morning of, surgery with an antibacterial soap.? Wear comfortable, loose fitting clothing.? Children are encouraged to wear pajamas. - Jewelry must be removed prior to entering the operating room.? Rings and piercings that are not removed may be cut off. - The hospital will not accept responsibility for valuables.? - Please leave all valuables, including medications, at home the day of surgery. If you are going home after surgery, a licensed special client bus driver must drive you home.? - NO public transportation without another adult if you receive anesthesia. - We recommend that an adult stay with you for 24 hours following discharge. - We also recommend that you do not drive, make important decision, drink alcoholic beverages, or take any drugs that were not prescribed by your health care provider for at least 24 hours after your discharge time. For Pediatric surgeries, we recommend two adults accompany the child home. Follow any additional instructions given to you from your surgeon. VERBAL AND WRITTEN instructions given to __PATIENT and asked if any additional questions and then verbalized understanding. Patient advised to call surgeon office or pre surgery nurse liaison [phone] if any additional questions.
[2024-12-22 11:31] VITALS: BP 116/72; PULSE 77; RESP 18; TEMP 36.5; O2SAT 97
[2025-01-18] VITALS (19 sets, daily range): BP systolic 92–134; BP diastolic 61–95; PULSE 74–117; RESP 10–18; TEMP 36.1–37.1; O2SAT 91–99
--- NOTE | ~2025-01-18 | XR_ITS ---
XR shoulder LT min 2V Ordering provider: Teofilo Woo MD History: . POST OP LEFT TOTAL SHOULDER . Comparison: None. FINDINGS: BONES: No acute fracture or dislocation. JOINT SPACES: Left total shoulder arthroplasty. SOFT TISSUES: Normal. Bilateral interstitial thickening in the lungs with possible left lung basal atelectasis. IMPRESSION: Status post left shoulder arthroplasty. No fractures seen. Reviewed, dictated and finalized at location A.
--- OUTSIDE RECORDS SUMMARY | 2025-01-18 01:52 | XMS_ITS | Referral Summary ---
Author Organization [facility] [address] Address [address] [place] [address] Care Team Providers Care Leaf Coverer Name Role Phone Kevin Patel MD Primary [...] on file Legal Sex Male 9:22 AM CORN LAB TECHNICIAN Gender Identity Male 04/08/2021 5:47 AM CDT Sexual Orientation Straight 04/08/2021 5: 48 AM CDT Last Filed Vital Signs Vital Sign Reading Time Taken Comments Blood Pressure 110/80 06/05/2024 8:00 AM CORN LAB TECHNICIAN Pulse 90 06/05/2024 8:00 AM CORN LAB TECHNICIAN Temperature - - Respiratory Rate 14 01/28/2017 8:34 AM CDT Oxygen Saturation 99% 06/05/2024 8:00 AM CORN LAB TECHNICIAN Inhaled Oxygen Concentration - - Weight 78.9 kg (174 lb) 06/05/2024 8:00 AM CORN LAB TECHNICIAN Height 165.1 cm (5' 5) 06/05/2024 8:00 AM CORN LAB TECHNICIAN Body Mass Index 28.96 06/05/2024 8:00 AM CORN LAB TECHNICIAN Plan of Treatment Not on file Insurance [facility] FEDERAL Member Subscriber Plan / Payer (Ef fective 2015-Present) Name:Gen Downey Relation to Subscriber:Self Name:Gen Downey Payer ID:[id number] (NAIC) Group ID:[id number] Type:BC ALLIANCE Address: [facility] [id number] [place] [phone] Care Teams Leaf Coverer Relationship Specialty Start Date End Date Kevin Patel MD [address] [facility] [address] [place] [address] PCP - General Family Medicine 05/24/23
--- OUTSIDE RECORDS SUMMARY | 2025-01-18 01:52 | XMS_ITS | Clinical Summary ---
Author Organization [facility] Address [address] [place] [address] Care Team Providers Care Vaccine Key Customer Leader Name Role Phone Unavailable Primary Care Provider Unavailabl e Source Comments [facility] [email or web address],non-owned Affiliates and Associated Physician Practices is amultiple site organization consisting of ambulatory clinics and hospital sitesin [place], [place], [place] and [place]. This disclosure is being madepursuant to the Care Everywhere program and may not contain all information available regarding this patient. Last updated 18.[facility] [email or web address] Social History Tobacco Use Types Packs/Day Years [...] - 1-dose 75+ series) 2025 INFLUENZA VACCINE (#1) 2025 HEPATITIS B VACCINE Aged Out No [...]
--- OUTSIDE RECORDS SUMMARY | 2025-01-18 01:52 | XMS_ITS | Clinical Summary ---
Author Organization [facility] [address] Address [address] [place] [address] Care Team Providers Care Inspector Barrel Name Role Phone Kevin Patel MD Primary [...] on file Legal Sex Male 9:22 AM BEEHIVE KILN CHARCOAL BURNER Gender Identity Male 04/08/2021 5:47 AM CDT Sexual Orientation Straight 04/08/2021 5: 48 AM CDT Obstetrics History Last Filed Vital Signs Vital Sign Reading Time Taken Comments Blood Pressure 110/80 06/05/2024 8:00 AM BEEHIVE KILN CHARCOAL BURNER Pulse 90 06/05/2024 8:00 AM BEEHIVE KILN CHARCOAL BURNER Temperature - - Respiratory Rate 14 01/28/2017 8:34 AM CDT Oxygen Saturation 99% 06/05/2024 8:00 AM BEEHIVE KILN CHARCOAL BURNER Inhaled Oxygen Concentration - - Weight 78.9 kg (174 lb) 06/05/2024 8:00 AM BEEHIVE KILN CHARCOAL BURNER Height 165.1 cm (5' 5) 06/05/2024 8:00 AM BEEHIVE KILN CHARCOAL BURNER Body Mass Index 28.96 06/05/2024 8:00 AM BEEHIVE KILN CHARCOAL BURNER Plan of Treatment Health Maintenance Due Date [...] Zoster Vaccine Completed 03/14/2019, 09/09, 04/26/2013 Insurance [facility] FEDERAL Care Teams Inspector Barrel Relationship Specialty Start Date End Date Kevin Patel MD [address] [place] [address] PCP - General Family Medicine 05/24/23
--- OUTSIDE RECORDS SUMMARY | 2025-01-18 01:52 | XMS_ITS | Encounter Summary ---
Author Organization [facility] Address [address] [place] [address] Care Team Providers Care Cigar Brander Name Role Phone Unavailable Primary Care Provider Unavailabl e Encounter Details Date Type Department Care Team (Late st Contact Info) Description 10/27/2022 Lab Requisition [facility] DermPath Lab [address] [place] [id number] Sukhdev Griffin MD [address] [place] [address] Social History Tobacco Use Types Packs/Day [...] AM CDT) Case Report Dermatopathology Report Case: [id number] Authorizing Provider: Sukhdev Griffin MD Collected: 10/26/2022 12:00 AM Ordering Location: [facility] Derm[facility] Lab Received: 10/27/2022 11:28 AM Pathologist: [...] characteristic determined by the Dermatopathology Laboratory at [facility], directed by Dr. Jose Adrian. These tests need not be, and therefore are not, approved by the [place] Food and Drug Administration. The tests are used for clinical purposes. Billing Codes Specimen Charges Stain Charges 39640 1 3 3:48 PM CDT DERMATOPATHOLOGY LABORATORY Embedded Images 3 3:48 PM CDT DERMATOPATHOLOGY LABORATORY Pathology/Cytolog y TISSUE SPECIMEN FROM SKIN / Unknown 10/26/2022 10/27/2022 11:28 AM CDT us Sukhdev Griffin MD LAB - PATHOLOGY/CYTOLOGY ORD ERABLES Final Result DERMATOPATHOLOGY LABORATORY [facility] - Department of Dermatology [address] [place] [address], [facility] [phone] documented in this encounter Visit Diagnoses Not on filedocumented in this encounter
[2025-01-18] MEDS: ACETAMINOPHEN 500 MG TABLET 1000 MG PO (06:20)
[2025-01-18] MEDS: LACTATED RINGERS 1,000 ML 30 ML IV CONT (06:25)
[2025-01-18] MEDS: TRANEXAMIC ACID 1,000MG/ISO100 1,000 MG/100 ML BAG 200 MG IVPB (06:38)
--- NOTE | 2025-01-18 07:10 | P.PNAN_ITS ---
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 Patient Data Age: 74 Gender: M Height: 1.63 m Weight: 78.4 kg Last Vital Signs Temp 36.4 C 01/18/25 06:15 Pulse 99 01/18/25 06:15 Resp 16 01/18/25 06:15 BP 111/70 01/18/25 06:15 Pulse Ox 98 01/18/25 06:15 O2 Del Method Room Air 01/18/25 06:15 Allergies Allergy/AdvReac Type Severity Reaction Status Date / Time erythromycin base AdvReac Mild Nausea Verified 01/18/25 06:17 Macrolide Antibiotics AdvReac Unknown NAUSEA Verified 01/18/25 06:17 Home Medications ?Medication ?Instructions ?Recorded ?Confirmed ?Type metoprolol tartrate 50 mg tablet 50 mg PO BID 08/11/21 01/18/25 History rivaroxaban 20 mg tablet (Xarelto) 20 mg PO DAILY 08/11/21 01/18/25 History multivit,Ca,min-iron 8 mg-folic 1 tablet PO DAILY 06/17/23 01/18/25 History acid 200 mcg-lycopene 600 mcg tablet (Centrum Men) omeprazole magnesium 20 mg 20 mg PO DAILY 06/17/23 01/18/25 History tablet,delayed release (Prilosec OTC) acetaminophen 500 mg capsule 500 mg PO Q6H 09/24/23 01/18/25 History ascorbate calcium (vitamin C) 500 500 mg PO EVERY OTHER DAY 09/24/23 01/18/25 History mg capsule diphenhydramine 25 1 tablet PO HS PRN Insomnia 09/24/23 01/03/25 History mg-acetaminophen 500 mg tablet (Tylenol PM Extra Strength) atorvastatin 20 mg tablet 20 mg PO DAILY #90 tabs 08/22/24 01/18/25 Rx tramadol 50 mg tablet 50 mg PO BID PRN pain #30 tabs 09/25/24 01/03/25 Rx loratadine 10 mg tablet 10 mg PO DAILY 12/22/24 01/18/25 History (Dhruv) Patient hx anesthesia problems: none Family hx anesthesia problems: none Results Review: All pre-operative results and documents have been reviewed as part of the pre- operative evaluation. [facility] Past Medical History Medical History Nephritis History of stress test A-fib Hip bursitis Shoulder tendonitis Hyperlipidemia Surgical History Surgical History Status post total replacement of right shoulder (~10/21/23) anatomic History of left inguinal hernia repair Laparoscopic left inguinal hernia repair with mesh, da Isauro assisted 08/24/22 [facility] Hx of tonsillectomy History of cardioversion x4 Family History Family History Father Pancreatic cancer Mother Lung cancer Social History Social History Smoking packs per day: 1.5 Smoking cigarettes per day: 30.0 Years smoked: 50 Smoking pack-years: 75.00 Smoking status: Former smoker Tobacco type: cigarettes Smoking end date: 07/12/09 Additional smoking assessment comments: 01/09/2010 Alcohol intake: never Substance use: never Substance use type: does not use Do You Feel Safe in your Home?: Yes Lack of Transportation: No Lack of Food: Never True Current Housing: I Have Housing Concerned About Future Housing: No Difficulty Paying Gas/Electric Bills: No Difficulty Paying for Meds: No Currently Unemployed: No Education: Master's Degree or Higher Difficulty w/ Childcare or Family Care: No Living arrangements: with family Additional living arrangements comments: Spiritual care concerns: No Anes - Eval Final PreProcedure Day of Procedure 01/18/25 07:10 Heart: irregular rhythm Lungs: clear to auscultation Airway: Mallampati scale class II Neurological: alert and oriented Last oral intake: >/= 8 hours ASA classification: III Emergent: no Anesthetic plan: proceed Anesthesia type and monitoring: general ETT and standard monitoring Results Review: All pre-operative results and documents have been reviewed as part of the pre- operative evaluation. Informed Consent: The patient's anesthetic plan and its attendant risks and benefits were discussed with the patient/family/POA. Questions were solicited and answers provided to the satisfaction of the patient/family/POA.
--- NOTE | 2025-01-18 07:21 | WPDHPUPDATE1 ---
History and Physical Update Update Date/Time: 01/18/25 07:21 History and Physical has been reviewed, including an updated exam of the patient. There are NO changes in the patient's condition. Risks, benefits, and alternatives have been discussed and questions answered. Patient agrees to proceed with procedure.
[2025-01-18] MEDS: ceFAZolin 2 GM in SODIUM CHLORIDE 0.9% IV 50 ML 100 ML IVPB (07:30)
[2025-01-18] MEDS: SODIUM CHLORIDE 0.9% IV 37.7 ML, MORPHINE SULFATE INJ (*CRX) 2 MG, ROPivacaine HCL 1% 2... INFILTRATE (08:19)
[2025-01-18] MEDS: VANCOMYCIN HCL 1,000 MG VIAL 1000 MG TOPICAL (08:41)
[2025-01-18] MEDS: TRANEXAMIC ACID 1,000 MG/10 ML AMPUL 1000 MG IV PUSH (09:20)
--- NOTE | 2025-01-18 09:28 | W.PM.PROC2 ---
Procedure Note - Detailed Date of Procedure 01/18/25 Pre-op Diagnosis Prim OA Lt Shoulder Post-op Diagnosis Same Procedure Performed Reverse total shoulder arthroplasty, left Surgeon Teofilo Woo MD Anesthesia General Findings Anterior supraspinatus torn. Anterior superior humeral translation. 5 degree augment on the glenoid baseplate. Good bone quality. Description of Procedure The patient was given an interscalene block in the preoperative area. Preoperative antibiotics were given. The patient was transferred to the operating room and a general anesthetic was administered. The beach chair position was used at 45 degrees. All bony prominences were padded. The head was carefully stabilized on the [facility] head bander and liner operator. A sterile prep and drape was performed in the usual manner with ChloraPrep. A longitudinal incision was created at the anterior shoulder just lateral to the deltopectoral interval. Hydrogen peroxide was placed on the incision and then rinsed after one minute. Careful dissection was performed to expose the interval and protect the cephalic vein. The vein was retracted medially. The upper border of the pectoralis was not released. Anterior circumflex vessel branches were suture ligated. The biceps was previously auto-tenodesed. A subscapularis tenotomy was performed. The inferior capsule was released, exposing the humeral head. Osteophytes were removed. Care was taken to stay on bone to protect the axillary nerve. The anatomic head cut was taken with the oscillating saw. The guide pin was placed, central drilling performed, and the broach trial inserted. The neck anteversion and inclination were carefully assessed. The cut protector was placed, and attention was turned to the glenoid. Retractors were placed. Releases were carried out for exposure. The subscapularis was mobilized, the inferior capsule and long head of triceps released, and the superior and middle glenohumeral ligaments released as well. Labral tissue was resected as needed. Version and inclination were corrected according to preoperative templating. The sizing template was used to assess the baseplate position low on the glenoid, with an approximate 7 degrees corrections of anteversion and 9 degrees of inclination. A guide pin was placed. Minimal reaming was used to accomplish a flat surface without violating the subchondral bone. The boss was drilled, and the real component was impacted into position. Supplemental locking screws were placed centrally, superiorly, and inferiorly. The glenosphere was impacted into the taper. The proximal humerus was reamed for the inset component. The humeral components were trialed. The real humeral stem, tray, and insert were impacted into position. The shoulder was copiously irrigated periodically with pulsatile lavage. The shoulder was reduced and stability confirmed. 1 gram of Vancomycin powder was placed in the joint. The remaining tissue was closed with 2-0 Vicryl, 3-0 Stratafix and 4-0 Stratafix, and steri-strips. A sterile silver occlusive dressing and shoulder immobilizer were placed. The patient was transferred to the recovery room. [employer] Shoulder [employer] reverse TSA size 28 x 6 x 0 stem. +0 polyethylene insert. 24mm 5 deg. augmented baseplate. 36+ 6 mm glenosphere. Estimated Blood Loss 300 Drains No Pathology None sent Complications No immediate complications Condition Stable Disposition PACU [facility] Billing Surgery - Charge Forward: Surgery Billing
[2025-01-18] MEDS: HYDROmorphone HCL INJ (*CRX) 1 MG/ML SYR 0.25 MG IV PUSH ×4 (10:11→10:45)
--- NOTE | 2025-01-18 11:56 | SUR.PHASEI ---
1110: Esther spoke w/ spouse and patient and they decided they want to try and wait it out for a private room.
--- NOTE | 2025-01-18 13:20 | ADMGEN ---
This patient, Gen Downey, was admitted to 3 [facility] S[facility] Room 311-01. Patient/family oriented to hospital policies and general routines including ID bracelet, bed and alarms, visiting hours, pain management, procedures, bathroom and other care routines, personal items, smoking policy, room service/diet, and visiting hours. Information on how to activate the Rapid Response Team has been discussed. Patient/Family are encouraged to report perceived risks to care and to ask questions if they do not understand what they are told or what they should do.
[2025-01-18] MEDS: ACETAMINOPHEN 325 MG TABLET 650 MG PO ×2 (14:16→19:05)
[2025-01-18] MEDS: oxyCODONE/ACETAMINOPHEN (*CRX) 5-325 MG TABLET 1 TABLET PO ×3 (14:21→23:03)
[2025-01-18] MEDS: ASPIRIN 81 MG ENTERIC TABLET PO (16:57)
[2025-01-18] MEDS: ceFAZolin 2 GM/D5W 50 ML 2 GM/50 ML BAG IVPB ×2 (16:58→23:05)
--- NOTE | 2025-01-18 19:26 | SUR.PHASEI ---
1120: Patient meets PACU discharge criteria, unit bed unavailable at this time. Patient placed in extended recovery status.
--- NOTE | 2025-01-18 19:39 | PC.NURSE ---
On 01/18/25, the SENIOR DB2 SYSTEMS PROGRAMMER, Ruby Hunter], provided care and completed GROU.PS documentation on this patient. I have reviewed the SENIOR DB2 SYSTEMS PROGRAMMER's documentation and agree with the findings.
[2025-01-18] MEDS: METOPROLOL TARTRATE 50 MG TAB PO (20:32)
[2025-01-19] MEDS: ACETAMINOPHEN 325 MG TABLET 650 MG PO ×2 (01:37→06:19)
[2025-01-19 02:41] VITALS: BP 93/68; PULSE 84; RESP 16; TEMP 36.2; O2SAT 94
[2025-01-19] MEDS: oxyCODONE/ACETAMINOPHEN (*CRX) 10-325 MG TABLET 1 TAB PO (03:52)
[2025-01-19 06:10] VITALS: BP 104/61; PULSE 88; RESP 16; TEMP 36.6; O2SAT 94
[2025-01-19 06:14] LABS: Hematocrit 37.2 % (42.0-52.0); Hemoglobin 11.7 g/dL (14.0-18.0); Immature Granulocyte Percent A 0.5 % (0-0.5); Lymphocytes Absolute Auto 1.43 K/mm3 (0.9-3.2); Mean Corpuscular HGB Conc 31.5 g/dl (32-36); Mean Corpuscular Hemoglobin 28.9 pg (26-34); Mean Corpuscular Volume 91.9 fl (80-100); Nucleated Red Blood Cells Absolute Auto 0.000 K/mm3 (0.0-0.012); Nucleated Red Blood Cells Perc 0.0 % (0.0-0.2); Platelet Count Result 201 k/mm3 (150-375); Red Blood Count 4.05 M/mm3 (4.6-6.20); White Blood Count 11.0 K/mm3 (4.5-10.0)
[2025-01-19 06:27] LABS: Anion Gap 5 mmol/L (4-12); Blood Urea Nitrogen 14 mg/dL (9-20); Calcium 8.5 mg/dL (8.4-10.2); Carbon Dioxide 29 mmol/L (22-30); Chloride 100 mmol/L (98-107); Estimated CRCL calculation 60 ml/min; Estimated Glomerular Filt Rate > 60; Glucose 102 mg/dL (65-110); Potassium 4.1 mmol/L (3.4-5.0); Sodium 134 mmol/L (137-145)
[2025-01-19] MEDS: SENNA/DOCUSATE SODIUM TABLET 2 TAB PO (10:24)
[2025-01-19] MEDS: ASPIRIN 81 MG ENTERIC TABLET PO (10:24)
[2025-01-19] MEDS: ceFAZolin 2 GM/D5W 50 ML 2 GM/50 ML BAG IVPB (10:24)
[2025-01-19] MEDS: ATORVASTATIN 20 MG TABLET PO (10:24)
[2025-01-19 10:25] VITALS: PULSE 88
[2025-01-19] MEDS: ASCORBIC ACID 500 MG TABLET PO (10:25)
[2025-01-19] MEDS: LORATADINE 10 MG TABLET PO (10:25)
[2025-01-19] MEDS: METOPROLOL TARTRATE 50 MG TAB PO (10:25)
[2025-01-19] MEDS: oxyCODONE/ACETAMINOPHEN (*CRX) 5-325 MG TABLET 1 TABLET PO (10:26)
[2025-01-19 11:00] VITALS: BP 126/70; PULSE 98; RESP 16; TEMP 36.6; O2SAT 96
== END 2025-01-19 13:25 | disposition home or self-care (01) ==
LOC: ANHSURGERY 09:43 → ANH3MEDSUR 13:13
PROVIDERS: PCP Family Medicine; Visit Provider Orthopaedic Surgery
PROC: (CPT 23472; principal; 2025-01-18 07:30)
DX: M19.012 Primary osteoarthritis, left shoulder (principal); M25.712 Osteophyte, left shoulder; E78.5 Hyperlipidemia, unspecified; I48.91 Unspecified atrial fibrillation; Z79.01 Long term (current) use of anticoagulants; Z79.891 Long term (current) use of opiate analgesic; Z98.890 Other specified postprocedural states; Z96.611 Presence of right artificial shoulder joint; Z87.891 Personal history of nicotine dependence; Z86.79 Personal history of other diseases of the circulatory system; Z80.1 Family history of malignant neoplasm of trachea, bronchus and lung; Z80.0 Family history of malignant neoplasm of digestive organs
CPT/HCPCS: 23472; 36415; 73030; 80048; 82948; 85025; 86850; 86900; 86901; 97110; 97116; 97161; 97165; 97535; J0690; A4565; A9270; C1776; J0166; J1100; J1171; J1885; J2003; J2270; J2405; J2704; J2795; J3010; J3373; J7120

== ENCOUNTER 2025-01-28 14:16 | Emergency (ER) | payer BC, SELFPAY ==
--- OUTSIDE RECORDS SUMMARY | 2025-01-28 14:20 | XMS_ITS | Referral Summary ---
Author Organization [facility] [place] [address] Address [address] [place] [address] Care Team Providers Care Systems Technician Name Role Phone Kevin Patel MD Primary [...] on file Legal Sex Male 9:22 AM MANAGER CLINICAL RESEARCH Gender Identity Male 04/08/2021 5:47 AM CDT Sexual Orientation Straight 04/08/2021 5: 48 AM CDT Last Filed Vital Signs Vital Sign Reading Time Taken Comments Blood Pressure 110/80 06/05/2024 8:00 AM MANAGER CLINICAL RESEARCH Pulse 90 06/05/2024 8:00 AM MANAGER CLINICAL RESEARCH Temperature - - Respiratory Rate 14 01/28/2017 8:34 AM CDT Oxygen Saturation 99% 06/05/2024 8:00 AM MANAGER CLINICAL RESEARCH Inhaled Oxygen Concentration - - Weight 78.9 kg (174 lb) 06/05/2024 8:00 AM MANAGER CLINICAL RESEARCH Height 165.1 cm (5' 5) 06/05/2024 8:00 AM MANAGER CLINICAL RESEARCH Body Mass Index 28.96 06/05/2024 8:00 AM MANAGER CLINICAL RESEARCH Plan of Treatment Not on file Insurance [facility] FEDERAL Member Subscriber Plan / Payer (Ef fective 2015-Present) Name:Gen Downey Relation to Subscriber:Self Name:Gen Downey Payer ID:[id number] (NAIC) Group ID:[id number] Type:[employer] Address: [facility] [id number] [id number] Care Teams Systems Technician Relationship Specialty Start Date End Date Kevin Patel MD [address] [facility] [address] [place] [address] PCP - General Family Medicine 05/24/23
--- OUTSIDE RECORDS SUMMARY | 2025-01-28 14:20 | XMS_ITS | Clinical Summary ---
Author Organization [facility] Address [address] [place] [address] Care Team Providers Care Dispatch Supervisor Name Role Phone Unavailable Primary Care Provider Unavailabl e Source Comments [facility] [employer],non-owned Affiliates and Associated Physician Practices is amultiple site organization consisting of ambulatory clinics and hospital sitesin [place], [place], [place] and [place]. This disclosure is being madepursuant to the Care Everywhere program and may not contain all information available regarding this patient. Last updated 18.[facility] [employer] Social History Tobacco Use Types Packs/Day Years [...]
--- OUTSIDE RECORDS SUMMARY | 2025-01-28 14:20 | XMS_ITS | Clinical Summary ---
Author Organization [facility] [place] [address] Address [address] [place] [address] Care Team Providers Care Paper Roll Machine Operator Name Role Phone Kevin Patel MD Primary [...] on file Legal Sex Male 9:22 AM CHURCH BUSINESS ADMINISTRATOR Gender Identity Male 04/08/2021 5:47 AM CDT Sexual Orientation Straight 04/08/2021 5: 48 AM CDT Obstetrics History Last Filed Vital Signs Vital Sign Reading Time Taken Comments Blood Pressure 110/80 06/05/2024 8:00 AM CHURCH BUSINESS ADMINISTRATOR Pulse 90 06/05/2024 8:00 AM CHURCH BUSINESS ADMINISTRATOR Temperature - - Respiratory Rate 14 01/28/2017 8:34 AM CDT Oxygen Saturation 99% 06/05/2024 8:00 AM CHURCH BUSINESS ADMINISTRATOR Inhaled Oxygen Concentration - - Weight 78.9 kg (174 lb) 06/05/2024 8:00 AM CHURCH BUSINESS ADMINISTRATOR Height 165.1 cm (5' 5) 06/05/2024 8:00 AM CHURCH BUSINESS ADMINISTRATOR Body Mass Index 28.96 06/05/2024 8:00 AM CHURCH BUSINESS ADMINISTRATOR Plan of Treatment Health Maintenance Due Date [...] Zoster Vaccine Completed 03/14/2019, 09/09, 04/26/2013 Insurance [facility] FEDERAL Care Teams Paper Roll Machine Operator Relationship Specialty Start Date End Date Kevin Patel MD [address] [place] [address] PCP - General Family Medicine 05/24/23
--- OUTSIDE RECORDS SUMMARY | 2025-01-28 14:20 | XMS_ITS | Encounter Summary ---
Author Organization [facility] Address [address] [place] [address] Care Team Providers Care Commercial Sales Manager Name Role Phone Unavailable Primary Care Provider Unavailabl e Encounter Details Date Type Department Care Team (Late st Contact Info) Description 10/27/2022 Lab Requisition [facility] [address] [place] [id number] Sukhdev Griffin MD [address] [place] [address] Social History Tobacco Use Types Packs/Day [...] AM CDT) Case Report Dermatopathology Report Case: [id number] Authorizing Provider: Sukhdev Griffin MD Collected: 10/26/2022 12:00 AM Ordering Location: [facility] Received: 10/27/2022 11:28 AM [...] characteristic determined by the Dermatopathology Laboratory at [facility], directed by Dr. Jose Adrian. These tests need not be, and therefore are not, approved by the [place] Food and Drug Administration. The tests are used for clinical purposes. Billing Codes Specimen Charges Stain Charges 13090 1 3 3:48 PM CDT DERMATOPATHOLOGY LABORATORY Embedded Images 3 3:48 PM CDT DERMATOPATHOLOGY LABORATORY Pathology/Cytolog y TISSUE SPECIMEN FROM SKIN / Unknown 10/26/2022 10/27/2022 11:28 AM CDT us Sukhdev Griffin MD LAB - PATHOLOGY/CYTOLOGY ORD ERABLES Final Result DERMATOPATHOLOGY LABORATORY [facility] - Department of Dermatology [address] [place] [address], [facility] [phone] documented in this encounter Visit Diagnoses Not on filedocumented in this encounter
[2025-01-28 14:26] VITALS: BP 99/67; PULSE 93; RESP 18; TEMP 36.4; O2SAT 98
--- NOTE | 2025-01-28 14:35 | ED_ITS ---
HPI - URI/Sore Throat General Chief Complaint: Upper Respiratory Infection Stated Complaint: headache/cold symptoms/sore throat patient presents to the [facility] accompanied by spouse with complaints of sore throat, nasal congestion, nasal drainage, headache, fatigue, chills, body aches, chest congestion, and cough that began about 7-8 days ago. Patient noted about 3 days in to having symptoms did have 1 day of fever which has now resolved. Patient has been using DayQuil and NyQuil with some relief of symptoms. Patient does report a shoulder replacement on the left 10 days ago. Denies any shortness of breath, dizziness, ear pain, or difficulty swallowing. Related Data Home Medications ?Medication ?Instructions ?Recorded ?Confirmed ?Last Taken ?Type metoprolol tartrate 50 mg tablet 50 mg PO BID 08/11/21 01/18/25 01/17/25 History rivaroxaban 20 mg tablet (Xarelto) 20 mg PO DAILY 08/11/21 01/18/25 01/14/25 History multivit,Ca,min-iron 8 mg-folic 1 tablet PO DAILY 06/17/23 01/18/25 01/14/25 History acid 200 mcg-lycopene 600 mcg tablet (Centrum Men) omeprazole magnesium 20 mg 20 mg PO DAILY 06/17/23 01/18/25 01/17/25 History tablet,delayed release (Prilosec OTC) acetaminophen 500 mg capsule 500 mg PO Q6H 09/24/23 01/18/25 01/17/25 History ascorbate calcium (vitamin C) 500 500 mg PO EVERY OTHER DAY 09/24/23 01/18/25 01/14/25 History mg capsule diphenhydramine 25 1 tablet PO HS PRN Insomnia 09/24/23 01/03/25 Unknown History mg-acetaminophen 500 mg tablet (Tylenol PM Extra Strength) loratadine 10 mg tablet 10 mg PO DAILY 12/22/24 01/18/25 01/17/25 History (Dhruv) Allergies Allergy/AdvReac Type Severity Reaction Status Date / Time erythromycin base AdvReac Mild Nausea Verified 01/18/25 06:17 Macrolide Antibiotics AdvReac Unknown NAUSEA Verified 01/18/25 06:17 Review of Systems Constitutional: Constitutional: Reports as per HPI, Reports chills, Reports fatigue, Reports fever(s) and Denies weakness Eyes: Eyes: Reports no additional eye complaints ENT: Reports as per HPI, Denies vertigo, Denies dizziness, Reports nasal congestion and Reports sore throat Cardiovascular: Cardiovascular: Reports no additional cardiovascular complaints Respiratory: Respiratory: Reports as per HPI, Reports chest congestion, Reports cough, Denies dyspnea and Denies wheezing Gastrointestinal: Gastrointestinal: Reports no additional gastrointestinal complaints Genitourinary: Genitourinary: Reports no additional male genitourinary complaints Musculoskeletal: Musculoskeletal: Reports no additional musculoskeletal complaints Integumentary/Breasts: Skin/Breast: Reports as per HPI, Denies erythema and Denies rash Neurologic: Reports as per HPI, Denies vertigo, Denies dizziness, Reports headache(s), Denies numbness and Denies weakness Psychiatric: Psychiatric: Reports no additional psychiatric complaints Endocrine: Endocrine: Reports no additional endocrine complaints Hematologic/Lymphatic: Hematologic/Lymphatic: Reports no additional hematologic/lymphatic complaints Allergic/Immunologic: Allergic/Immunologic: Reports no additional allergic/immunologic complaints PMFSH Past Medical History Medical History (Updated 01/28/25 @ 15:02 by CHIRAG Nye-C) Nephritis History of stress test A-fib Hip bursitis Shoulder tendonitis Hyperlipidemia Surgical History Surgical History (Updated 01/18/25 @ 09:45 by Teofilo Woo MD) 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 (~10/21/23) anatomic History of left inguinal hernia repair Laparoscopic left inguinal hernia repair with mesh, da Isauro assisted 08/24/22 [facility] Hx of tonsillectomy History of cardioversion x4 Family History Family History Father Pancreatic cancer Mother Lung cancer Social History Social History Smoking packs per day: 1.5 Smoking cigarettes per day: 30.0 Years smoked: 50 Smoking pack-years: 75.00 Smoking status: Former smoker Additional smoking assessment comments: 01/09/2010 Alcohol intake: never Substance use: never Substance use type: does not use Do You Feel Safe in your Home?: Yes Lack of Transportation: No Lack of Food: Never True Current Housing: I Have Housing Concerned About Future Housing: No Difficulty Paying Gas/Electric Bills: No Difficulty Paying for Meds: No Currently Unemployed: No Education: Master's Degree or Higher Difficulty w/ Childcare or Family Care: No Living arrangements: with family Additional living arrangements comments: Spiritual care concerns: No Exam Const: General: healthy appearing and no acute distress Nutritional Appearance: well nourished Orientation/consciousness: patient oriented x3 Limitations: no limitations HENMT: Head: normal to inspection Ears: external ears normal and TM's normal bilaterally Face/Nose/Sinus: Normal external nose present and nares abnormal ( Minimal erythema and edema noted bilaterally.) Face and sinus: normal facial exam and sinus tenderness ( Bilateral) maxillary Mouth: Yes Normal oral and palatal mucosa present, Yes lip normal and Yes moist mucous membranes Throat: posterior oropharynx abnormal ( minimal erythema noted. No edema or exudate) Neck: Neck: no lymphadenopathy Resp: Effort & Inspection: normal respiratory effort Auscultation: clear to auscultation bilaterally Cardio: Rate: regular rate Rhythm: regular rhythm Skin: General skin exam: normal color Rashes: no rashes Wounds: no wounds Neuro: General: patient oriented x3 and moves all extremities Speech: normal speech Gait exam (Neuro): Normal gait present Extrem: Other: shoulder immobilizer in place left arm Psych: Mental Status: mental status grossly normal Affect: normal affect Attitude: cooperative Course Course Level of Care: Express Care Visit Vital Signs Vital signs: Vital Signs Temperature 97.6 F 01/28/25 14:26 Pulse Rate 93 01/28/25 14:26 Respiratory Rate 18 01/28/25 14:26 Blood Pressure 99/67 L 01/28/25 14:26 Pulse Oximetry 98 01/28/25 14:26 Oxygen Delivery Room Air 01/28/25 14:26 Temperature 97.6 F 01/28/25 14:26 Pulse Rate 93 01/28/25 14:26 Respiratory Rate 18 01/28/25 14:26 Blood Pressure 99/67 L 01/28/25 14:26 Pulse Oximetry 98 01/28/25 14:26 Oxygen Delivery Room Air 01/28/25 14:26 MDM - URI/Sore Throat MDM Narrative Medical decision making narrative: given length of time, symptoms, and recent surgery will place patient on doxycycline to cover for sinus infection and pneumonia. Discharge instructions reviewed with patient, as well as provided in writing per nursing staff. The instructions also include specific and strict return/GO TO THE ER as well as f/u information. All questions have been answered, and the patient deny any further questions with discharge and discharge plan. Differential Diagnosis Differential diagnosis: Likely upper respiratory infection, otitis media, sinusitis, viral infection, bronchitis, influenza and pharyngitis Medical Records Attestation: I reviewed the patient's medical records. Lab Data Attestation: I reviewed the patient's lab results. Lab results narrative: negative testing Labs: Lab Results 01/28/25 01/28/25 Range/Units 14:45 14:47 POC Influenza A Ag Negative (Negative) POC Influenza B Ag Negative (Negative) POC SARS CoV-2 Ag Negative (Negative) POC Grp A Strep Screen Negative (Negative) Discharge Plan Discharge Clinical Impression: Sinusitis, bacterial, Cough, Conjunctivitis Patient Disposition: Home Condition: Stable Instructions: Antibiotic Form, Sinusitis (ED), Acute Cough (ED) Additional Instructions: Return to urgent care or go to the ER for new or worsening symptoms. Continue to take Tylenol or Motrin for pain. Use a humidifier or vaporizer at night. Take Medications as prescribed. Drink plenty of water. 8-10 glasses per day. Use flonase 2 times per day for 5 days then as needed Take mucinex 2 times per day and be sure to take with 8oz of water. use Sudafed as needed nasal congestion and help dry up nasal drainage. Follow up with Primary provider if not getting better. Return to Express Care or go to the ER for new or worsening symptoms. Take the full dose of Antibiotics. Ensure to take this with yogurt or probiotics to help with any stomach upset and diarrhea. Patient Language: Portuguese Prescriptions: New tobramycin-dexamethasone 0.3-0.1 % drops,suspension 1 drp EACH EYE QID Qty: 5 0RF doxycycline monohydrate 100 mg capsule 100 mg PO BID Qty: 20 0RF No Action Xarelto 20 mg tablet 20 mg PO DAILY Rx Instructions: must administer with evening meal metoprolol tartrate 50 mg tablet 50 mg PO BID tramadol 50 mg tablet 50 mg PO BID PRN (Reason: pain) Qty: 30 0RF omeprazole magnesium [Prilosec OTC] 20 mg Tablet,Delayed Release (Dr/Ec) 20 mg PO DAILY Centrum Men 8 mg iron- 200 mcg-600 mcg Tablet 1 tablet PO DAILY loratadine [Allerclear] 10 mg tablet 10 mg PO DAILY aspirin [Enteric Coated Aspirin] 81 mg tablet,delayed release (DR/EC) 81 mg PO DAILY Qty: 14 0RF oxycodone-acetaminophen 5-325 mg tablet 1 - 2 tablet PO Q6H MDD 6 tablets PRN (Reason: pain) Qty: 30 0RF diphenhydramine-acetaminophen [Tylenol PM Extra Strength] 25-500 mg Tablet 1 tablet PO HS PRN (Reason: Insomnia) acetaminophen 500 mg Capsule 500 mg PO Q6H ascorbate calcium (vitamin C) 500 mg Capsule 500 mg PO EVERY OTHER DAY atorvastatin 20 mg tablet 20 mg PO DAILY Qty: 90 2RF Follow-up/Referrals: Kevin Patel MD [Primary Care Provider] - Time of Disposition: 15:03
[2025-01-28 14:47] LABS: EDSTREPNEGPOS1 Negative (Negative)
[2025-01-28 14:49] LABS: EDCOVIDSCREEN Negative (Negative); EDINFLUASCREEN Negative (Negative); EDINFLUBSCREEN Negative (Negative)
== END 2025-01-28 15:04 | disposition home or self-care (01) ==
PROVIDERS: Emergency Provider Nurse Practitioner Family; PCP Family Medicine
DX: J32.9 Chronic sinusitis, unspecified (principal); R05.9 Cough, unspecified; H10.9 Unspecified conjunctivitis; Z20.822 Contact with and (suspected) exposure to COVID-19; Z87.891 Personal history of nicotine dependence; I48.91 Unspecified atrial fibrillation; E78.5 Hyperlipidemia, unspecified; Z96.611 Presence of right artificial shoulder joint
CPT/HCPCS: 87426; 87804; 87880; 99213; G0463

== ENCOUNTER 2025-03-13 09:22 | Outpatient (CLI) | payer BC, SELFPAY ==
--- OUTSIDE RECORDS SUMMARY | 2021-03-07 03:12 | XMS_ITS | Continuity of Care Document ---
Author Organization [facility] Address [address] [place] [address] Phone Care Team Providers Care Magnet Maker Name Role Phone Kun Bah MD Unavailable Unavailable Allergies, Adverse Reactions, Alerts Substance Reaction Status Criticality Cephalosporins Rash Active No Informatio n erythromycin base GI Active No Informa tion Medications Medication Instructions Dosage Effective Dates (start - stop) Status Comments atorvastatin 20 mg tablet take 1 tablet by oral route every day 20 MG - Active NO FURTHER REFILLS UNTIL SEES PCP 03/2021 sildenafil (pulmonary hypertension) 20 mg tablet 2-5 tabs po prn - Active clobetasol-emollien t 0.05 % topical cream apply bid for Eczema on legs/trunk for 2wks - Active metoprolol tartrate 50 mg tablet 1 po bid - Active omeprazole 20 mg capsule,delayed release take 1 capsule by oral route every day 30 minutes to 1 hour before a meal 20 MG - Active Xarelto 20 mg tablet take 1 tablet by oral route every day with the evening meal 20 MG - Active atorvastatin 20 mg tablet take 1 tablet by oral route every day 20 MG - No Longer Active NO FURTHER REFILLS UNTIL SEES PCP 03/2021 Procedures Procedure Date FALL PLAN OF CARE DOC'D URINE INCON PLAN DOC'D PRES/ABSN URINE INCON ASSESS Pt inelig neg scrn depres GENERAL HEALTH PANEL HEMOGLOBIN A1C HGA1C, GLYCO LIPID PANEL MICROALBUMIN, QN (URINE) CREATININE, (U-R) PSA, TOTAL URINALYSIS, REFLEX (UA) VITAMIN B12 (SERUM) VITAMIN D, 25-HYDROXY ROUTINE VENIPUNCTURE PREVENTATIVE-EST: 65 & OVER BODY MASS INDEX DOCD SYST BP LT 130 MM HG DIAST BP 80-89 MM HG Advance Directives Directive Yes / No Effective Date File Name No Information Encounters Encounter Description Practice Location Reason(s) For Visit Diagnoses Date Provider Providers Copied on Encounter [employer], [address], [place], [place], [address] , tel: [phone] [facility] Internal Medicine No Information 1 Olvin Tristan. [address], [address], [address], . [phone] [employer], [address], [place], [place], [address] , tel: [phone] [facility] Internal Medicine No Information 1 Olvin Tristan. [address], [address], [place], [place], [address], . tel:[phone] [employer], [address], [place], [place], [address] , tel: [phone] [facility] Internal Medicine No Information 0 Olvin Tristan. [address], [address], [place], [place], [address], . tel:[phone] PREVENTATIVE -EST: 65 & OVER [employer], [address], [place], [place], [address] , tel: [phone] [facility] Internal Medicine Complete Physical Examination (chief complaint)Ch ronic Conditions (chief complaint) Body mass index (BMI) 29.0-29.9, adultEncounter for general adult medical examination without abnormal findingsHyperli pidemia, unspecifiedGast ro-esophageal reflux disease without esophagitisParo xysmal atrial fibrillation Olvin Tristan. [address], [address], [place], [place], [address], [place]. tel:[phone] Referring Provider: Kun Larkin, [address], [place], [address] . tel:[phone] [employer], [address], [place], [place], [address] , [place] tel: [phone] [facility] Internal Medicine No Information Olvin Tristan. [address], [address], [place], [place], [address], [place]. tel:[phone] [employer], [address], [place], [place], [address] , [place] tel: [phone] [facility] Persistent atrial fibrillationEnc ounter for general adult medical examination without abnormal findingsHyperli pidemia, unspecifiedGast ro-esophageal reflux disease without esophagitisUnsp ecified kyphosis, cervical region 8 Olvin Tristan[address], [address], [place], [place], [address], [place]. tel:[phone] Referring Provider: [address], [place], [address] . tel:[phone] [employer], [address], [place], [place], [address] , tel: [phone] [facility] Iron deficiency anemia, unspecified iron deficiency anemia typePersistent atrial fibrillationHyp erlipidemia, unspecifiedGast ro-esophageal reflux disease without esophagitisPred iabetesEncounte r for HCV screening test for low risk patient [facility] Debra. [address], [address], [place], [place], [address], [place]. tel:[phone] Referring Provider: [address], [place], [address] . tel:[phone] [employer], [address], [place], [place], [address] , [place] tel: [phone] [facility] Encounter for general adult medical examination without abnormal findingsGastro- esophageal reflux disease without esophagitisHype rlipidemia, unspecifiedPers istent atrial fibrillationIro n deficiency anemia, unspecified iron deficiency anemia typeEncounter for immunization 6 Olvin Tristan. [address], [address], [place], [place], [address], . tel:[phone] Referring Provider: Kun Larkin, [address], [place], [address] . tel:[phone] [employer], [address], [place], [place], [address] , tel: [phone] [facility] ROUTINE MEDICAL EXAMOther and unspecified hyperlipidemiaE sophageal refluxAtrial FibrillationPre diabetes 4 Olvin Tristan. [address], [address], [place], [place], [address], . [phone] Referring Provider: Kun Larkin, [address], [place], [address] . tel:[phone] [employer], [address], [place], [place], [address] , tel: [phone] [facility] No Information 3 Olvin Tristan[address], [address], [place], [place], [address], . tel:[phone] [employer], [address], [place], [place], [address] , tel: [phone] [facility] No Information 3 Olvin Tristan[address], [address], [place], [place], [address], [place]. tel:[phone] [employer], [address], [place], [place], [address] , tel: [phone] [facility] Routine general medical examination at a health care facilityOther and unspecified hyperlipidemiaR outine general medical examination at a health care facilityPersona l history of colonic polypsPrediabet es 3 Olvin Tristan[address], [address], [place], [place], [address], [place]. tel:[phone] Referring Provider: Kun Larkin, [address], [place], [address] . tel:[phone] [facility], [address], [place], [place], [address] , [place] tel: [phone] [facility] LONG-TERM USE MEDS NEC May-0 8201 0 Olvin Tristan. [address], [address], [place], [place], [address], [place]. tel:[phone] [facility], [address], [place], [place], [address] , [place] tel: [phone] [facility] HYPERLIPIDEMIA NEC/NOS May- 8201 0 Conversion Doctor. [address] [place] [address], [address], [place]. [facility], [address], [place], [place], [address] , tel: [phone] [facility] VACCINATION FOR TD-DT Sep-3 0-201 0 Olvin Tristan. [address], [address], [place], [place], [address], [place]. tel:[phone] [employer] [facility], [address], [place], [place], [address] , [place] tel: [phone] [facility] ESOPHAGEAL REFLUX Mar-2 0 Conversion Doctor. [address] [place] [address], [address], [place]. [employer], [address], [place], [place], [address] , [place] tel: [phone] [facility] SCREEN-DIABETES MELLITUSSCRN-IS CHEMIC HEART DISSCREEN-THYRO ID DISORDERSCREEN MALIG NEOP-COLONCARDI AC DYSRHYTHMIAS NECSCRN MALIG NEOP-PROSTATEKY PHOSIS NOSROUTINE MEDICAL EXAMSCREEN-DEFI C ANEMIA NEC Sep-2 9-201 0 Olvin Tristan. [address], [address], [place], [place], [address], [place]. tel:[phone] [facility], [address], [place], [place], [address] , tel: [phone] [facility] IMPOTENCE, ORGANIC ORIGN 2 0-200 8 Con[facility]. [address], [place], [address], [place]. [facility], [address], [place], [place], [address] , tel: [phone] [facility] No Information May-0 6-200 5 Olvin Tristan. [address], [address], [place], [place], [address], [place]. tel:[phone] [facility], [address], [place], [place], [address] , tel: [phone] [facility] No Information May-0 3-200 5 Olvin Tristan. [address], [address], [place], [place], [address], . tel:[phone] [facility], [address], [place], [place], [address] , tel: [phone] [facility] TETANUS TOXOID INOCULAT 2 1-200 0 Olvin Tristan. [address], [address], [place], [place], [address], [place]. tel:[phone] Family History Family Member Type Diagnosis Age At Onset No Information Immunizations Vaccine Date Status Comments Fluzone High-Dose, high dose , preservative free administered Source: Other Provid er SHINGRIX (Zoster vaccine recombinant, adjuvanted) administered Note: dose 2 ; Source: Other Provider SHINGRIX (Zoster vaccine recombinant, adjuvanted) administered Note: dose 1 ; Source: Other Provider Td (adult) preservative free administered Source: New Immunization Record Pneumococcal polysaccharide PPV23 administered Source: New Immuniza tion Record Fluzone Quad , spli t virus, 0.5mL dosage administered Source: New Immuniza tion Record Pneumococcal conjugate PCV 13 administere d Source: New Immunization Record influenza, injectable, quadrivalent, (3 years or older) administered Source: Other Provid er Zoster administered Source: New Imm unization Record flu (split) (3 yrs or older) administered Source: New Immunization Record 71325 - TD administered Source: Source Unspecified Payers Payer name Insurance type Covered alliance party ID Authoriza tion(s) BCBS ACCESS BL [id number] BCBS INACTIVE OUT OF STATE BL [id number] BCBS INACTIVE OUT OF STATE BL [id number] BCBS INACTIVE OUT OF STATE BL [id number] BCBS INACTIVE OUT OF STATE BL [id number] Social History Type Description Quantity Date Captured Comments Sex Male Smoking Status No Information Chief Complaint And Reason For Visit No Information Reason For Referral Reason For Referral No Information Plan Of Treatment Date Type Action Status Goal Dietary management education , guidance, and counseling completed History Of Present Illness Encounter Date Complaint History Of Prese nt Illness Chronic Conditions *See Chronic Conditions HPI Complete Physical Examination Co mes in today for his routine annual check up. Feels well. Functional Status Date Functional Assessmen t No Information Instructions Date Instruction Additional Infor mation Labs today. dT '08; Tdap '18. Flu '18. Prevnar '16. Pneumovax '17. Zostavax '13. Shingrix x2 '19. EKG '14 (more recent at cardiology)NURY '14. PSA today. Colonoscopy '14; next due 05/04.Discussed healthy diet/regular exercise/weight loss strategies.RTO next year; sooner prn. Related to Encounter for general adult medical examination without abnormal findings Stable. Discussed lo ng-term benefit of maintaining NSR. He'll cont regular cardiology f/u Related to Paroxysmal atrial fibrillation Omeprazole remains e ffective. Cont current rx. Related to Gastro-esophageal reflux disease without esophagitis Well controlled. Rpt fasting lipid profile today. Cont current rx pending lab review. Related to Hyperlipidemia, unspecified Disease prevention Urinary Incontinence Giving encouragement to exercise Related to Body mass index (BMI) 29.0-29.9, adult Dietary management e ducation, guidance, and counseling Related to Body mass index (BMI) 29.0-29.9, adult Fall Risk Prevention Urinary Incontinence Assessments Type Assessment Date No Information Patient Care Teams Name Effective Dates (start - stop) Status Members No Information
--- NOTE | ~2025-03-13 | CT_ITS ---
EXAMINATION: CT lung screening DATE: 03/13/2025 09:34 INDICATION: Personal history of nicotine dependence. TECHNIQUE: Computed tomography (CT) of the chest was performed without intravenous contrast. The dose-length product was 110.12 mGy-cm. Automated exposure control and iterative reconstruction technique were employed. COMPARISON: CT dated 01/18/2020 FINDINGS: There is a new subtle hypodense mass of the liver and the right hepatic lobe with ill-defined margins. Stable cyst of the left hepatic lobe. The spleen, pancreas, adrenal glands and kidneys are unremarkable. Heart size normal. No significant pleural or pericardial effusion. There are bilateral shoulder arthroplasties. Stable chronic mild wedge compression deformities of the thoracic spine with accentuated kyphosis. There is emphysema. No endobronchial lesions. No pneumothorax. There are chronic interstitial changes peripherally with basilar preference. There is associated groundglass opaci fication and interlobular septal thickening, likely representing superimposed mild chronic interstitial fibrosis. There are calcified granulomas of the lungs. There are a few small 1-2 mm nodules in the upper lobes which are not clearly calcified, likely benign. IMPRESSION: 1. . Lung-RADS category 2: Benign appearance or behavior. Continue annual screening with noncontrast low-dose chest CT in 12 months. 2: New hypodense mass of the liver not well characterized without contrast. Recommend correlation with CT or MRI with contrast. 3: Moderate emphysema with superimposed changes consistent with chronic interstitial fibrosis. Reviewed, dictated and finalized at location O. IMPRESSION: 1. . Lung-RADS category 2: Benign appearance or behavior. Continue annual scree kenan with noncontrast low-dose chest CT in 12 months. 2: New hypodense mass of the liver not well characterized without contrast. Rec ommend correlation with CT or MRI with contrast. 3: Moderate emphysema with superimposed changes consistent with chronic inters titial fibrosis.
--- OUTSIDE RECORDS SUMMARY | 2025-03-13 09:36 | XMS_ITS | Clinical Summary ---
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 Gender Identity Male 04/08/2021 5:47 AM CDT Sexual Orientation Straight 04/08/2021 5: 48 AM CDT Obstetrics History Last Filed Vital Signs Vital Sign Reading Time Taken Comments Blood Pressure 110/80 06/05/2024 8:00 AM SLIPPER MAKER Pulse 90 06/05/2024 8:00 AM SLIPPER MAKER Temperature - - Respiratory Rate 14 01/28/2017 8:34 AM CDT Oxygen Saturation 99% 06/05/2024 8:00 AM SLIPPER MAKER Inhaled Oxygen Concentration - - Weight 78.9 kg (174 lb) 06/05/2024 8:00 AM SLIPPER MAKER Height 165.1 cm (5' 5) 06/05/2024 8:00 AM SLIPPER MAKER Body Mass Index 28.96 06/05/2024 8:00 AM SLIPPER MAKER Plan of Treatment Health Maintenance Due Date Last Done Comments Colon Cancer Screening-Colonoscopy 1950 Depression Screening 1950 Fall Risk Assessment 1950 Hepatitis C Screening 1950 DTaP/Tdap/Td Vaccine (1 - Tdap) 1961 Hepatitis B Screening 1968 Pneumococcal vaccine 65+ (1 of 1 - PCV) 2000 Abdominal Aortic Aneurysm (A AA) Screen 2015 Well Visit 65+ 2015 Influenza Vaccine (#1) 2025 0, 04/27/2019, 03/27/2018, Additional history exists Zoster Vaccine Completed 03/14/2019, 09/09, 04/26/2013 Insurance [facility] FEDERAL Care Teams Senior Java Programmer Relationship Specialty Start Date End Date Kevin Patel MD [address] [place] [address] PCP - General Family Medicine 05/24/23
--- OUTSIDE RECORDS SUMMARY | 2025-03-13 09:36 | XMS_ITS | Encounter Summary ---
Author Organization [facility] Address [address] [place] [address] Care Team Providers Care Pipe Threader Name Role Phone Unavailable Primary Care Provider Unavailabl e Encounter Details Date Type Department Care Team (Late st Contact Info) Description 10/27/2022 Lab Requisition [facility] DermPath Lab [address] [place] [id number] Sukhdev Griffin MD [address] [place] [address] Social History Tobacco Use Types Packs/Day [...] AM CDT) Case Report Dermatopathology Report Case: [id number] Authorizing Provider: Sukhdev Griffin MD Collected: 10/26/2022 12:00 AM Ordering Location: [facility] Derm[facility] Lab Received: 10/27/2022 11:28 AM Pathologist: [...] the Dermatopathology Laboratory at [facility], directed by Dr. Jose Adrian. These tests need not be, and therefore are not, approved by the [place] Food and Drug Administration. The tests are used for clinical purposes. Billing Codes Specimen Charges Stain Charges 89354 1 3 3:48 PM CDT DERMATOPATHOLOGY LABORATORY Embedded Images 3 3:48 PM CDT DERMATOPATHOLOGY LABORATORY Pathology/Cytolog y TISSUE SPECIMEN FROM SKIN / Unknown 10/26/2022 10/27/2022 11:28 AM CDT us Sukhdev Griffin MD LAB - PATHOLOGY/CYTOLOGY ORD ERABLES Final Result DERMATOPATHOLOGY LABORATORY [facility] - Department of Dermatology [address] [place] [address], [facility] [phone] documented in this encounter Visit Diagnoses Not on filedocumented in this encounter
--- OUTSIDE RECORDS SUMMARY | 2025-03-13 09:36 | XMS_ITS | Clinical Summary ---
Author Organization [facility] Address [address] [place] [address] Care Team Providers Care Day Haul Or Farm Charter Bus Driver Name Role Phone Unavailable Primary Care Provider Unavailabl e Source Comments [facility],non-owned Affiliates and Associated Physician Practices is amultiple site organization consisting of ambulatory clinics and hospital sitesin [place], [place], [place] and [place]. This disclosure is being madepursuant to the Care Everywhere program and may not contain all information available regarding this patient. Last updated 18.[facility] Social History Tobacco Use Types Packs/Day Years [...]
== END 2025-03-13 09:23 | disposition home or self-care (01) ==
PROVIDERS: PCP Family Medicine; Visit Provider Student in an Organized Health Care Education/Training Program
DX: Z12.2 Encounter for screening for malignant neoplasm of respiratory organs (principal); Z87.891 Personal history of nicotine dependence; J43.9 Emphysema, unspecified; R16.0 Hepatomegaly, not elsewhere classified
CPT/HCPCS: 71271

== ENCOUNTER 2025-04-16 01:39 | Day surgery (SDC) | payer BC, SELFPAY ==
--- OUTSIDE RECORDS SUMMARY | 2021-03-07 03:12 | XMS_ITS | Continuity of Care Document ---
Author Organization [facility] Address [address] [place] [address] Phone Care Team Providers Care School Psychological Examiner Name Role Phone Kun Bah MD Unavailable [...] Diagnoses Date Provider Providers Copied on Encounter [employer], [address], [place], [place], [address] , tel: [phone] [facility] Internal Medicine No Information 1 Olvin Tristan. [address], [address], [address], . [phone] [employer], [address], [place], [place], [address] , tel: [phone] [facility] Internal Medicine No Information 1 Olvin Tristan. [address], [address], [place], [place], [address], . tel:[phone] [employer], [address], [place], [place], [address] , tel: [phone] [facility] Internal Medicine No Information 0 Olvin Tristan. [address], [address], [place], [place], [address], . tel:[phone] PREVENTATIVE -EST: 65 & OVER [employer], [address], [place], [place], [address] , tel: [phone] [facility] Internal Medicine Complete Physical Examination (chief complaint)Ch ronic Conditions (chief complaint) Body mass index (BMI) 29.0-29.9, adultEncounter for general adult medical examination without abnormal findingsHyperli pidemia, unspecifiedGast ro-esophageal reflux disease without esophagitisParo xysmal atrial fibrillation Olvin Tristan. [address], [address], [place], [place], [address], [place]. tel:[phone] Referring Provider: Kun Larkin, [address], [place], [address] . tel:[phone] [employer], [address], [place], [place], [address] , [place] tel: [phone] [facility] Medicine No Information Olvin Tristan. [address], [address], [place], [place], [address], [place]. tel:[phone] [employer], [address], [place], [place], [address] , [place] tel: [phone] [facility] Persistent atrial fibrillationEnc ounter for general adult medical examination without abnormal findingsHyperli pidemia, unspecifiedGast ro-esophageal reflux disease without esophagitisUnsp ecified kyphosis, cervical region 8 Olvin Tristan. [address], [address], [place], [place], [address], [place]. tel:[phone] Referring Provider: [address], [place], [address] . tel:[phone] [employer], [address], [place], [place], [address] , tel: [phone] [facility] Iron deficiency anemia, unspecified iron deficiency anemia typePersistent atrial fibrillationHyp erlipidemia, unspecifiedGast ro-esophageal reflux disease without esophagitisPred iabetesEncounte r for HCV screening test for low risk patient [facility] Debra. [address], [address], [place], [place], [address], [place]. tel:[phone] Referring Provider: [address], [place], [address] . tel:[phone] [employer], [address], [place], [place], [address] , [place] tel: [phone] [facility] Encounter for general adult medical examination without abnormal findingsGastro- esophageal reflux disease without esophagitisHype rlipidemia, unspecifiedPers istent atrial fibrillationIro n deficiency anemia, unspecified iron deficiency anemia typeEncounter for immunization 6 Olvin Tristan[address], [address], [place], [place], [address], . tel:[phone] Referring Provider: Kun Larkin, [address], [place], [address] . tel:[phone] [employer], [address], [place], [place], [address] , tel: [phone] [facility] ROUTINE MEDICAL EXAMOther and unspecified hyperlipidemiaE sophageal refluxAtrial FibrillationPre diabetes 4 Olvin Tristan. [address], [address], [place], [place], [address], . [phone] Referring Provider: Kun Larkin, [address], [place], [address] . tel:[phone] [facility], [address], [place], [place], [address] , tel: [phone] [facility] No Information 3 Olvin Tristan. [address], [address], [place], [place], [address], . tel:[phone] [employer], [address], [place], [place], [address] , tel: [phone] [facility] No Information 3 Olvin Tristan[address], [address], [place], [place], [address], [place]. tel:[phone] [employer], [address], [place], [place], [address] , tel: [phone] [facility] Routine general medical examination at a health care facilityOther and unspecified hyperlipidemiaR outine general medical examination at a health care facilityPersona l history of colonic polypsPrediabet es 3 Olvin Tristan[address], [address], [place], [place], [address], [place]. tel:[phone] Referring Provider: Kun Larkin, [address], [place], [address] . tel:[phone] [facility], [address], [place], [place], [address] , [place] tel: [phone] [facility] LONG-TERM USE MEDS NEC May-0 8201 0 Olvin Tristna. [address], [address], [place], [place], [address], [place]. tel:[phone] [facility], [address], [place], [place], [address] , [place] tel: [phone] [facility] HYPERLIPIDEMIA NEC/NOS May- 8201 0 Conversion Doctor. [address] [place] [address], [address], [place]. [employer], [address], [place], [place], [address] , tel: [phone] [facility] VACCINATION FOR TD-DT Sep-3 0-201 0 Olvin Tristan. [address], [address], [place], [place], [address], [place]. tel:[phone] [employer], [address], [place], [place], [address] , [place] tel: [phone] [facility] ESOPHAGEAL REFLUX Mar-2 0 Conversion Doctor. [address] [place] [address], [address], [place]. [employer] [employer], [address], [place], [place], [address] , [place] tel: [phone] [facility] SCREEN-DIABETES MELLITUSSCRN-IS CHEMIC HEART DISSCREEN-THYRO ID DISORDERSCREEN MALIG NEOP-COLONCARDI AC DYSRHYTHMIAS NECSCRN MALIG NEOP-PROSTATEKY PHOSIS NOSROUTINE MEDICAL EXAMSCREEN-DEFI C ANEMIA NEC Sep-2 9-201 0 Olvin Tristan. [address], [address], [place], [place], [address], [place]. tel:[phone] [facility], [address], [place], [place], [address] , tel: [phone] [facility] IMPOTENCE, ORGANIC ORIGN 2 0-200 8 Conversion Doctor. [address], [place], [address], [place]. [facility], [address], [place], [place], [address] , tel: [phone] [facility] No Information May-0 6-200 5 Olvin Tristan. [address], [address], [place], [place], [address], [place]. tel:[phone] [facility], [address], [place], [place], [address] , tel: [phone] [facility] No Information May-0 3-200 5 Olvin Tristan. [address], [address], [place], [place], [address], . tel:[phone] [facility], [address], [place], [place], [address] , tel: [phone] [facility] TETANUS TOXOID INOCULAT 2 1-200 0 Olvin Tristan. [address], [address], [place], [place], [address], [place]. tel:[phone] Family History Family Member Type Diagnosis Age [...] or older) administered Source: New Immunization Record 92308 - TD administered Source: Source Unspecified Payers Payer name Insurance type Covered republican ID Authoriza tion(s) BCBS ACCESS BL [id number] BCBS INACTIVE OUT OF STATE BL [id number] BCBS INACTIVE OUT OF STATE BL [id number] BCBS INACTIVE OUT OF STATE BL [id number] BCBS INACTIVE OUT OF STATE BL [id number] Social History Type Description Quantity Date Captured [...]
[2025-04-10 10:39] VITALS: BMI 29.2
--- NOTE | 2025-04-10 11:01 | PC.NURSE ---
Spoke with Patient regarding medication xarelto. Patient verbalizes understanding that the last dose is to be taken on 04/13/2025 and the Endoscopist will instruct them when to restart after the procedure.
--- OUTSIDE RECORDS SUMMARY | 2025-04-16 01:41 | XMS_ITS | Clinical Summary ---
Author Organization [facility] Address [address] [place] [address] Care Team Providers Care Inventory Representative Name Role Phone Unavailable Primary Care Provider Unavailabl e Source Comments [facility],non-owned Affiliates and Associated Physician Practices is amultiple site organization consisting of ambulatory clinics and hospital sitesin [place], [place], [place] and [place]. This disclosure is being madepursuant to the Care Everywhere program and may not contain all information available regarding this patient. Last updated 18.[facility] Social History Tobacco Use Types Packs/Day Years [...] 2000 ZOSTER VACCINE (1 of 2) 2000 DEPRESSION SCREENING 07/12/2024 Respiratory Syncytial Virus (RSV) Vaccine Pt: or over 60 yrs (1 - 1-dose 75+ series) 2025 COVID-19 VACCINE ( - 2023-2 5 season) 2025 INFLUENZA VACCINE (#1) 2025 HEPATITIS B [...]
--- OUTSIDE RECORDS SUMMARY | 2025-04-16 01:42 | XMS_ITS | Clinical Summary ---
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 Gender Identity Male 04/08/2021 5:47 AM CDT Sexual Orientation Straight 04/08/2021 5: 48 AM CDT Obstetrics History Last Filed Vital Signs Vital Sign Reading Time Taken Comments Blood Pressure 110/80 06/05/2024 8:00 AM COMPETITIVE ATHLETE Pulse 90 06/05/2024 8:00 AM COMPETITIVE ATHLETE Temperature - - Respiratory Rate 14 01/28/2017 8:34 AM CDT Oxygen Saturation 99% 06/05/2024 8:00 AM COMPETITIVE ATHLETE Inhaled Oxygen Concentration - - Weight 78.9 kg (174 lb) 06/05/2024 8:00 AM COMPETITIVE ATHLETE Height 165.1 cm (5' 5) 06/05/2024 8:00 AM COMPETITIVE ATHLETE Body Mass Index 28.96 06/05/2024 8:00 AM COMPETITIVE ATHLETE Plan of Treatment Health Maintenance Due Date [...] Zoster Vaccine Completed 03/14/2019, 09/09, 04/26/2013 Insurance [facility] FEDERAL Care Teams Paint Formulator Relationship Specialty Start Date End Date Kevin Patel MD [address] [place] [address] PCP - General Family Medicine 05/24/23
--- OUTSIDE RECORDS SUMMARY | 2025-04-16 01:42 | XMS_ITS | Encounter Summary ---
Author Organization [facility] Address [address] [place] [address] Care Team Providers Care Photo Tech Name Role Phone Unavailable Primary Care Provider Unavailabl e Encounter Details Date Type Department Care Team (Late st Contact Info) Description 10/27/2022 Lab Requisition [facility] DermPath Lab [address] [place] [phone] Sukhdev Griffin MD [address] [place] [address] Social History Tobacco Use Types Packs/Day [...] AM CDT) Case Report Dermatopathology Report Case: [id number] Authorizing Provider: Sukhdev Griffin MD Collected: 10/26/2022 12:00 AM Ordering Location: [facility] DermPath Lab Received: 10/27/2022 11:28 AM [...] characteristic determined by the Dermatopathology Laboratory at [facility], directed by Dr. Jose Adrian. These tests need not be, and therefore are not, approved by the [place] Food and Drug Administration. The tests are used for clinical purposes. Billing Codes Specimen Charges Stain Charges 46043 1 3 3:48 PM CDT DERMATOPATHOLOGY LABORATORY Embedded Images 3 3:48 PM CDT DERMATOPATHOLOGY LABORATORY Pathology/Cytolog y TISSUE SPECIMEN FROM SKIN / Unknown 10/26/2022 10/27/2022 11:28 AM CDT us Sukhdev Griffin MD LAB - PATHOLOGY/CYTOLOGY ORD ERABLES Final Result DERMATOPATHOLOGY LABORATORY [facility] - Department of Dermatology [address] [place] [address], [facility] [phone] documented in this encounter Visit Diagnoses Not on filedocumented in this encounter
--- OUTSIDE RECORDS SUMMARY | 2025-04-16 01:42 | XMS_ITS | Clinical Summary ---
Author Organization [facility] Address [facility] [place] [address] Care Team Providers Care Iron Melter Name Role Phone Kevin Patel MD Primary Care Provider Encounters Date Type Department Care Team Description 04/04/2025 11:52 AM CDT - 04/04/2025 11:59 PM CDT Hospital Encounter [facility] [address] [place], [place] [id number] Vick Ruby PA Discharge Disposition: Home or Self Care (Routine Discharge) 04/04/2025 Travel from Last 3 Months Social History Tobacco Use Types Packs/Day Years Used Date Smoking Tobacco: Never Assessed Sex and Gender Information Value Date Recorded Sex Assigned at Male 04/04/2025 11:46 AM CDT Legal Sex Male 1:45 PM CDT Gender Identity Not on file Sexual Orientation Not on file Plan of Treatment Health Maintenance Due Date Last Done Comments Colorectal Cancer Screening Colonoscopy (10 Years) 1950 Hepatitis C 1968 DTaP, Tdap and Td Vaccines (1 - Tdap) 1969 Pneumococcal Vaccine: 50+ Years (1 of 1 - PCV) 2000 COVID-19 Vaccine (2023- season) 2025 08/18/2024, 10/13/2023, 06/06/2023, Additional history exists Zoster Vaccines Completed 03/14/2019, 09/09, 04/26/2013 RSV Immunization or 60+ Years Completed 06/15/2023 Influenza Adult Completed 03/22/2025, 03/12, 04/21/2022, Additional history exists Meningococcal B Vaccine Aged Out No l onger eligible based on patient's age to complete this topic Meningococcal Vaccine Aged Out No manuela elton eligible based on patient's age to complete this topic RSV Immunizations Under 20 Months Aged Out No longer eligible based on patient's age to complete this topic Procedures Procedure Name Priority Date/Time Associated Diagnosis Comments CT ABD W CON Routine 04/04/2025 12:16 PM CDT Liver disease, unspecified from Last 3 Months Results * CT ABD W CON (04/04/2025 12:16 PM CDT) Anatomical Region Laterality Modality Abdomen Computed Tomogra phy 04/05/2025 10:2 2 AM CDT Impressions 04/05/2025 5:10 PM CDT IMPRESSION: 1. No suspicious intrahepatic mass is identified. There is a simple 2.2 cm left hepatic lobe cyst. 2. No lymphadenopathy is seen within the abdomen. 3. There is a 2.0 cm posterior left renal cyst. The attending radiologist has reviewed the image(s) and agrees with the content of this report. Ordered By: VICK RUBY Interpreted By: Yahir Pacheco MD, 04/05/2025 10:22 AM Narrative 04/05/2025 5:10 PM CDT [address] [address] PROCEDURE: CT ABD W CON HISTORY: Liver disease Liver mass. TECHNIQUE: Helical CT of the abdomen and pelvis was performed using non-ionic intravenous contrast. No oral contrast administered A dose lowering technique was used for this procedure, which may include, but is not limited to, dose reduction technique, automated exposure control, the use of iterative reconstruction, and ALARA (As Low As Reasonably Achievable) / Image Gently techniques. COMPARISON: None. FINDINGS CT ABDOMEN/PELVIS: Lower thorax: There is subsegmental atelectasis in the lower lobes. Bibasilar pulmonary fibrosis. The heart is normal in size. Liver: The liver is normal in size. There is no intrahepatic mass. There is a 2.2 cm left hepatic lobe cyst. Biliary tree: The gallbladder is present. There is no biliary ductal dilatation. Spleen: The spleen is normal in size. Pancreas: The pancreas is normal in size and enhances homogenously. Adrenal glands: The adrenal glands are normal in size and shape. Kidneys: There are bilateral symmetric nephrograms without hydronephrosis. There is a 2.0 cm posterior left renal cyst. Lymph nodes: Abdomen: There is no abdominal adenopathy. Pelvis: There is no pelvic adenopathy. Vasculature: There is no abdominal aortic aneurysm. Atherosclerotic calcification is seen. Peritoneum/mesentery/omentum: There is no free fluid or free air. GI tract: There is no bowel obstruction. No aggressive osseous lesions identified. Body wall: There are degenerative changes in the spine. Small fat-containing paraumbilical hernia. Lopez: (S/I) = series number / image number Procedure Note Sina Salvador MD - 04/05/[address] [address] PROCEDURE: CT ABD W CON HISTORY: Liver disease Liver mass. TECHNIQUE: Helical CT of the abdomen and pelvis was performed usingnon-ionic intravenous contrast. No oral contrast administered A dose lowering technique was used for this procedure, which may include,but is not limited to, dose reduction technique, automated exposurecontrol, the use of iterative reconstruction, and ALARA (As Low AsReasonably Achievable) / Image Gently techniques. COMPARISON: None. FINDINGS CT ABDOMEN/PELVIS: Lower thorax: There is subsegmental atelectasis in the lower lobes.Bibasilar pulmonary fibrosis. The heart is normal in size. Liver: The liver is normal in size. There is no intrahepatic mass. Thereis a 2.2 cm left hepatic lobe cyst. Biliary tree: The gallbladder is present. There is no biliary ductaldilatation. Spleen: The spleen is normal in size. Pancreas: The pancreas is normal in size and enhances homogenously. Adrenal glands: The adrenal glands are normal in size and shape. Kidneys: There are bilateral symmetric nephrograms withouthydronephrosis. There is a 2.0 cm posterior left renal cyst. Lymph nodes: Abdomen: There is no abdominal adenopathy. Pelvis: There is no pelvic adenopathy. Vasculature: There is no abdominal aortic aneurysm. Atheroscleroticcalcification is seen. Peritoneum/mesentery/omentum: There is no free fluid or free air. GI tract: There is no bowel obstruction. No aggressive osseous lesionsidentified. Body wall: There are degenerative changes in the spine. Smallfat-containing paraumbilical hernia. Lopez: (S/I) = series number / image number IMPRESSION: 1. No suspicious intrahepatic mass is identified. There is a simple 2.2cm left hepatic lobe cyst. 2. No lymphadenopathy is seen within the abdomen. 3. There is a 2.0 cm posterior left renal cyst. The attending radiologist has reviewed the image(s) and agrees with thecontent of this report. Ordered By: VICK RUBY Interpreted By: Yahir Pacheco MD, 04/05/2025 10:22 AM Vick Ruby [place] CT Final Result from Last 3 Months Insurance [facility] Care Teams Iron Melter Relationship Specialty Start Date End Date Kevin Patel MD [address] [place] [address] PCP - General FAMILY PRACTICE 03/23/25
[2025-04-16 06:25] VITALS: BP 128/87; PULSE 100; RESP 20; TEMP 36.8; O2SAT 97; BMI 28.8
[2025-04-16] MEDS: LACTATED RINGERS 1,000 ML 150 ML IV CONT (06:39)
--- NOTE | 2025-04-16 07:21 | WPDANESEPPF ---
Anes - Initial Pre Proc Eval Procedure: Operation Date: 04/16/25 07:30 Proposed Procedures p Screening Colonoscopy - Kristopher Dinero MD Date/Time: 04/16/25 07:21 Surgeon: Kristopher Dinero MD Pre Op Diagnosis: Encounter for screening for malignant neoplasm of Patient Data Age: 75 Gender: M Height: 1.63 m Weight: 76.1 kg Allergies Allergy/AdvReac Type Severity Reaction Status Date / Time erythromycin base AdvReac Mild Nausea Verified 04/16/25 06:23 Macrolide Antibiotics AdvReac Unknown NAUSEA Verified 04/16/25 06:23 Home Medications ?Medication ?Instructions ?Recorded ?Confirmed ?Type metoprolol tartrate 50 mg tablet 50 mg PO BID 08/11/21 04/16/25 History rivaroxaban 20 mg tablet (Xarelto) 20 mg PO DAILY 08/11/21 04/16/25 History multivit,Ca,min-iron 8 mg-folic 1 tablet PO DAILY 06/17/23 04/16/25 History acid 200 mcg-lycopene 600 mcg tablet (Centrum Men) omeprazole magnesium 20 mg 20 mg PO DAILY 06/17/23 04/16/25 History tablet,delayed release (Prilosec OTC) acetaminophen 500 mg capsule 500 mg PO Q6H PRN pain 09/24/23 04/10/25 History ascorbate calcium (vitamin C) 500 500 mg PO EVERY OTHER DAY 09/24/23 04/10/25 History mg capsule diphenhydramine 25 1 tablet PO HS PRN Insomnia 09/24/23 04/10/25 History mg-acetaminophen 500 mg tablet (Tylenol PM Extra Strength) atorvastatin 20 mg tablet 20 mg PO DAILY #90 tabs 08/22/24 04/16/25 Rx loratadine 10 mg tablet 10 mg PO DAILY 12/22/24 04/10/25 History (Allerclear) Patient hx anesthesia problems: none Family hx anesthesia problems: none Results Review: All pre-operative results and documents have been reviewed as part of the pre-operative evaluation. 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) anatomic History of left inguinal hernia repair Laparoscopic left inguinal hernia repair with mesh, da Isauro assisted 08/24/22 [facility] Hx of tonsillectomy History of cardioversion x4 Family History Family History Father Pancreatic cancer Mother Lung cancer Social History Social History Smoking packs per day: 1.5 Smoking cigarettes per day: 30.0 Years smoked: 50 Smoking pack-years: 75.00 Smoking status: Former smoker Additional smoking assessment comments: 01/09/2010 Alcohol intake: never Substance use: never Substance use type: does not use Do You Feel Safe in your Home?: Yes Lack of Transportation: No Lack of Food: Never True Current Housing: I Have Housing Concerned About Future Housing: No Difficulty Paying Gas/Electric Bills: No Difficulty Paying for Meds: No Currently Unemployed: No Education: Master's Degree or Higher Difficulty w/ Childcare or Family Care: No Living arrangements: with family Additional living arrangements comments: Spiritual care concerns: No Anes - Eval Final PreProcedure Day of Procedure 04/16/25 07:21 Patient weight: overweight Heart: irregular rhythm Lungs: decreased breath sounds Airway: Mallampati scale class II Neurological: alert and oriented Last oral intake: >/= 8 hours ASA classification: III Emergent: no Anesthetic plan: proceed Anesthesia type and monitoring: general GIVS and standard monitoring Results Review: All pre-operative results and documents have been reviewed as part of the pre-operative evaluation. Informed Consent: The patient's anesthetic plan and its attendant risks and benefits were discussed with the patient/family/POA. Questions were solicited and answers provided to the satisfaction of the patient/family/POA.
--- NOTE | 2025-04-16 07:31 | PM.HPGS ---
History of Present Illness History of Present Illness Consent: Risks, benefits, and alternatives have been discussed and questions answered. Patient agrees to proceed with procedure. 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 (~10/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) anatomic History of left inguinal hernia repair Laparoscopic left inguinal hernia repair with mesh, da Isauro assisted 08/24/22 [facility] Hx of tonsillectomy History of cardioversion x4 Family History Family History Father Pancreatic cancer Mother Lung cancer Social History Social History Smoking packs per day: 1.5 Smoking cigarettes per day: 30.0 Years smoked: 50 Smoking pack-years: 75.00 Smoking status: Former smoker Additional smoking assessment comments: 01/09/2010 Alcohol intake: never Substance use: never Substance use type: does not use Do You Feel Safe in your Home?: Yes Lack of Transportation: No Lack of Food: Never True Current Housing: I Have Housing Concerned About Future Housing: No Difficulty Paying Gas/Electric Bills: No Difficulty Paying for Meds: No Currently Unemployed: No Education: Master's Degree or Higher Difficulty w/ Childcare or Family Care: No Living arrangements: with family Additional living arrangements comments: Spiritual care concerns: No Meds Home Medications and Allergies Home Medications ?Medication ?Instructions ?Recorded ?Confirmed ?Type metoprolol tartrate 50 mg tablet 50 mg PO BID 08/11/21 04/16/25 History rivaroxaban 20 mg tablet (Xarelto) 20 mg PO DAILY 08/11/21 04/16/25 History multivit,Ca,min-iron 8 mg-folic 1 tablet PO DAILY 06/17/23 04/16/25 History acid 200 mcg-lycopene 600 mcg tablet (Centrum Men) omeprazole magnesium 20 mg 20 mg PO DAILY 06/17/23 04/16/25 History tablet,delayed release (Prilosec OTC) acetaminophen 500 mg capsule 500 mg PO Q6H PRN pain 09/24/23 04/10/25 History ascorbate calcium (vitamin C) 500 500 mg PO EVERY OTHER DAY 09/24/23 04/10/25 History mg capsule diphenhydramine 25 1 tablet PO HS PRN Insomnia 09/24/23 04/10/25 History mg-acetaminophen 500 mg tablet (Tylenol PM Extra Strength) atorvastatin 20 mg tablet 20 mg PO DAILY #90 tabs 08/22/24 04/16/25 Rx loratadine 10 mg tablet 10 mg PO DAILY 12/22/24 04/10/25 History (Dhruv) Allergies Allergy/AdvReac Type Severity Reaction Status Date / Time erythromycin base AdvReac Mild Nausea Verified 04/16/25 06:23 Macrolide Antibiotics AdvReac Unknown NAUSEA Verified 04/16/25 06:23 Exam Const: General: comfortable and no acute distress HENMT: Face/Nose/Sinus: Normal nares present Eyes: General: appearance normal, both eyes and all related structures Resp: Auscultation: clear to auscultation bilaterally Cardio: Rate: regular rate Rhythm: regular rhythm GI: Inspection: non-distended GI Palp: Yes Soft to palpation Skin: General skin exam: normal color Extrem: General: normal to inspection Psych: Mental Status: mental status grossly normal Assessment and Plan Assessment and plan (1) Colon cancer screening: Code(s): Z12.11 - Encounter for screening for malignant neoplasm of colon Status: Acute Assessment and Plan: colonoscopy
--- NOTE | 2025-04-16 07:45 | S_PTH ---
PATIENT: Gen Downey LOC: [facility]ELLE Valenzuela#:[id number] AGE/SX: 75/M ROOM: RE04/16/[address]: Kristopher Dinero MD : 1950 BED: DIS: 04/16/2025 SPEC #: [id number] RECD: 04/16/25 10:46 STATUS: MARYANN REQ #: [id number] MICHELLE: 04/16/25 07:[address]: Kristopher Dinero DEPT: [facility] Surgical RECD BY: Kaitlynn Mccall ENTERED: 04/16/25 10:47 SP TYPE: Surgical OTHR DR: Kevin Patel MD Tissues: A - Colon Polypectomy Procedures: Hematoxylin and Eosin Stain Gross and Microscopic Level 4
[2025-04-16 07:47] VITALS: BP 87/45; PULSE 80; RESP 23; O2SAT 97
[2025-04-16 07:57] VITALS: BP 86/50; PULSE 71; RESP 25; O2SAT 97
[2025-04-16 08:07] VITALS: BP 96/53; PULSE 77; RESP 17; O2SAT 98
== END 2025-04-16 08:19 | disposition home or self-care (01) ==
PROVIDERS: PCP Family Medicine; Referring Provider Family Medicine; Visit Provider Internal Medicine Gastroenterology
PROC: 0DJD8ZZ Inspection of Lower Intestinal Tract, Via Natural or Artificial Opening Endoscopic (ICD-10-PCS; CPT 45378; principal; 2025-04-16 07:30)
DX: Z12.11 Encounter for screening for malignant neoplasm of colon (principal); D12.2 Benign neoplasm of ascending colon; K64.8 Other hemorrhoids; E78.5 Hyperlipidemia, unspecified; I48.91 Unspecified atrial fibrillation; Z79.01 Long term (current) use of anticoagulants; Z98.890 Other specified postprocedural states; Z87.891 Personal history of nicotine dependence; Z86.79 Personal history of other diseases of the circulatory system; Z80.0 Family history of malignant neoplasm of digestive organs; Z80.1 Family history of malignant neoplasm of trachea, bronchus and lung
CPT/HCPCS: 45385; 88305; J2003; J2704; J7120